=== PATIENT | male | born 1960 | race Caucasian/White ===

== ENCOUNTER 2016-05-28 13:51 | Inpatient (IN) ==
[2016-05-28] MEDS ORDERED: SODIUM CHLORIDE 0.9% 1,000 ML IV STA (14:26)
--- NOTE | 2016-05-28 14:30 | Emergency Department Note ---
Arrival - Arrival Chief Complaint: Non-Specific Stated Complaint: n/v,shaking,irregular pulse ED Nursing Triage Note: Pt c/o chills, dizziness, cough, nausea, and vomiting. States he started feeling bad last week. Mode of Arrival: Wheelchair Limitations: No Limitations Source: Patient, Family Time Seen by Provider: 05/28/16 14:10 - History of Present Illness HPI Narrative: Patient complains of chills, nausea, vomiting since this morning. He states that he has not felt well all weekend and has been in bed. He is had nasal congestion and a nonproductive cough. He has a small amount of epistaxis when he blows his nose. He does have a history of sick contacts with the flu. The patient has a history of alcohol abuse and I admitted him several months ago with delirium tremens. He says that he had not drank since that admission until 2 days ago when he drank a single beer. He is on Celexa but has been taking it very irregularly lately. His last dose was 2 nights ago. Allergies/Adverse Reactions: Allergies Allergy/AdvReac Type Severity Reaction Status Date / Time No Known Allergies Allergy Verified 01/07/16 18:09 Home Medications: Home Medications Medication Instructions Recorded Confirmed Type Citalopram [CeleXA] 20 mg PO DAILY 01/07/16 05/28/16 History Folic Acid Tab 1 mg PO DAILY 01/07/16 05/28/16 History Lactulose Liquid [Chronulac] 20 gm PO Q8H #90 udcup 01/14/16 05/28/16 Rx Pantoprazole Tab [Protonix Tab] 40 mg PO DAILY #60 tablet 01/14/16 05/28/16 Rx Review of System - Review of System 12 point system: reviewed and no additional remarkable complaints except as stated - Review of System Constitutional: Present: chills. Absent: diaphoresis, fever Head/Ears/Nose/Throat: Present: epistaxis, nasal drainage. Absent: sore throat Respiratory: Present: cough. Absent: respiratory distress, wheezing Cardiovascular: Absent: chest pain Gastrointestinal: Present: nausea, vomiting. Absent: abdominal pain Musculoskeletal: Absent: arm pain, arthralgia, back pain, leg pain, neck pain Neurological: Present: vertigo. Absent: headache, weakness Psychiatric: Absent: auditory hallucinations, visual hallucinations Medical,Surgical,& Family Hx - Medical History Cardio: History of: Hypertension Psychological: History of: Psychiatric/Substance Abuse Tx Endocrine: No history of: Diabetes Mellitus (NIDDM) Respiratory: No history of: COPD Gastrointestinal: History of: Liver Problems (Cirrohsis) - Surgical History Surgical History: noncontributory - Family History Family History: noncontributory - Social History Smoking Status: Smoker, status unknown Frequency of Alcohol Use: Rarely Exam Physical Examination: GENERAL: Alert. No acute distress. Shaking from chills. HEENT: Normocephalic and atraumatic. PERRLA. Sclerae slightly icteric. There is no nasal drainage. Small amount of dried blood at the left nostril. No pharyngeal erythema or exudate. NECK: Normal inspection. Supple. No lymphadenopathy or meningismus. LUNGS: No respiratory distress. Clear to auscultation bilaterally, no wheezes, rales or rhonchi. HEART: Regular rate and rhythm. ABDOMEN: Soft, nontender and nondistended with normoactive bowel sounds. BACK: Normal inspection. SKIN: Color normal. Warm and dry. EXTREMITIES: Nontender. Normal range of motion. No pedal edema. NEUROLOGICAL/PSYCHIATRIC: Alert and oriented 3 with normal mood and affect. Cranial nerves normal. No motor or sensory deficit. Vital Signs: Vital Signs Temperature 99.4 F 05/28/16 13:51 Pulse Rate 111 H 05/28/16 13:51 Respiratory Rate 20 05/28/16 13:51 Blood Pressure 138/104 05/28/16 13:51 O2 Sat by Pulse Oximetry 99 05/28/16 13:51 Course - Reevaluation(s) Reevaluation #1: Patient has remained stable in the ER. He has taken water with no vomiting here. He has several abnormalities on his workup. Basically he is acidotic with elevated anion gap and lactate. The most likely cause of this in this patient with a history of alcohol abuse would be ethanol, however, he continues to maintain that he has had only 2 beers since December and that was yesterday. His ethanol is minimally elevated at 25 but this is higher than I would expect if he just drank 2 beers yesterday. He denies consumption of isopropyl alcohol, methanol, ethylene glycol or formaldehyde. His potassium and magnesium are low. His bilirubin is elevated but is had about the same level as it was in December. I have discussed the patient with the hospitalist service (Krystle) who will see him and admit. Time: 15:55 Results - Labs CBC & BMP: 05/28/16 14:30 05/28/16 14:30 Lab Results: I have reviewed the patients labs Labs: Microbiology 05/28/16 14:26 Nasal Aspirate Influenza Types A,B Antigen (YVES) - Final Negative for Influenza A Ag Negative for Influenza B Ag Laboratory Tests 05/28/16 05/28/16 05/28/16 14:24 14:30 14:30 INR Lactic Acid Magnesium 1.4 L Total Bilirubin 5.40 H AST 103 H ALT 37 Alkaline Phosphatase 212 H Ammonia Urine Protein 30 Urine Ketones 20 Urine Urobilinogen 4.0 H Urine RBC 1 Urine WBC 2 Serum Alcohol 05/28/16 05/28/16 14:30 14:30 INR 1.4 Lactic Acid 10.8 H Magnesium Total Bilirubin AST ALT Alkaline Phosphatase Ammonia < 10 L Urine Protein Urine Ketones Urine Urobilinogen Urine RBC Urine WBC Serum Alcohol 27 - Impressions Chest x-ray shows some old granulomatous disease with scarring and minimal atelectasis in the bases. Disposition Clinical Impression: Alcoholic hepatitis, Hypokalemia, Hypomagnesemia, Hyperbilirubinemia, Metabolic acidosis, Vomiting, Noncompliance with medication regimen Case discussed with: patient, patient's family Disposition: Still a Patient Condition: Guarded Time of Disposition: 15:52
[2016-05-28 14:54] LABS: Basophils % 0.8 % (0.0-0.8); Hematocrit 37.8 VOL% (42.0-52.0); Hemoglobin 13.4 GM/DL (14.0-18.0); Immature Granulocytes % 0.4 %; Immature Granulocytes Absolute 0.02 #; Lymphocytes # 0.6 10*3/uL (1.4-4.0); Lymphocytes % 11.4 % (21.2-54.2); Mean Corpuscular HGB Conc 35.4 GM/DL (32-36); Mean Corpuscular Hemoglobin 35 PG (27-34); Mean Corpuscular Volume 97.7 FL (87-102); Mean Platelet Volume 10.4 FL (9.6-12.0); Monocytes # 0.5 10*3/uL (0.11-0.8); Monocytes % 10.6 % (1.7-12.7); Neutrophils # 3.8 10*3/uL (1.4-7.4); Neutrophils % 76.8 % (38.7-73.9); Platelet Count 85 10*3/uL (130-400); Red Blood Count 3.87 10*6/uL (3.8-5.5); Red Cell Distribution Width 14.1 % (9.3-17.3); White Blood Count 4.9 10*3/uL (4.5-13.71)
--- NOTE | 2016-05-28 14:54 | XRay Report ---
Portable chest Date:[05/28/2016] Clinical history: Fever, cough Comparison: 01/07/2016 Technique: Portable AP sitting chest Findings: The heart is normal in size. Calcified granulomata/nodes with chronic scarring. Minimal atelectasis/infiltration at the lung bases. Stable mediastinum with degenerative changes. Impression: Old healed granulomatous disease chronic scarring. Minimal atelectasis/infiltration at the lung bases. PROCEDURE INTERPRETED AT [facility] DEPARTMENT OF RADIOLOGY Final Report Signed by: Dr. Dione Matos
[2016-05-28 15:13] LABS: INR 1.4; Partial Thromboplastin Time 30.4 SECS (0-40); Platelet Estimate Decreased
[2016-05-28 15:15] LABS: Albumin 3.2 G/DL (3.4-5.0); Ammonia < 10 UMOL/L (11-32); Bilirubin,Total 5.4 MG/DL (0.2-1.0); Calcium 8.8 MG/DL (8.5-10.1); Lactic Acid 10.8 MMOL/L (0.4-2.0); Osmolality,Calculated 279.1 MOS/KG (273-304); Total Protein 7.8 G/DL (6.4-8.3)
[2016-05-28] MEDS ORDERED: THIAMINE INJ 100 MG, FOLIC ACID INJ 1 MG, MAGNESIUM SULF INJ 2 GM, MULTIVITAMIN INJ 10 ... IV ONE (15:23)
[2016-05-28 15:25] LABS: Apearance,Urine Slightly Hazy (Clear); Bilirubin,Urine Negative (Negative); Blood, Urine Negative (Negative); Glucose,Urine (UA) Negative (Negative); Granular Casts,Urine 13 /LPF (0-1); Hyaline Casts,Urine 9 /LPF (0-3); Ketones,Urine 20 mg/dL (Negative); Mucus,Urine Many /LPF (Occasional); Nitrite,Urine Negative (Negative); Protein,Urine 30 MG/DL; RBC,Urine 1 /HPF (0-4); Squamous Epithelial Cell,Urine Occasional /HPF (0-10); Urine Color Amber (Yellow); Urine Specific Gravity 1.018 (1.001-1.035); WBC,Urine 2 /HPF (0-6)
[2016-05-28 15:29] LABS: Barbiturates Screen,Urine Negative (Negative); Benzodiazepines Screen,Urine Negative (Negative); Cannabinoid Screen,Urine Negative (Negative); Opiate Screen,Urine Negative (Negative); Phencyclidine Screen,Urine Negative (Negative)
[2016-05-28] MEDS: SODIUM CHLORIDE 0.9% 1,000 ML IV SCH (16:00)
[2016-05-28] MEDS ORDERED: ONDANSETRON 4 MG/2 ML VIAL IV PRN (16:24)
[2016-05-28] MEDS ORDERED: DOCUSATE SODIUM 100 MG CAPSULE PO PRN (16:24)
--- NOTE | 2016-05-28 17:02 | Hospitalist History & Physical ---
Assessment and Plan (1) Alcohol withdrawal Status: Resolved Assessment and plan: He appears to be in the early stages of alcohol withdrawal. I will treat him with lorazepam. Current Visit: No (2) Alcoholic encephalopathy Status: Acute Assessment and plan: He is mildly encephalopathic. Current Visit: No (3) Hypokalemia Status: Acute Assessment and plan: Potassium replacement. Current Visit: Yes History of Present Illness Chief complaint: Weakness History of present illness: Mr. Yoder is a 55 year old male witha a history of alcohol abuse. He states that he stopped drinking several days [employer]. Since that time, he has felt generally weak. He states that he feels like he has the flu. He has not been experiencing fever, shaking chills, n&v, diarrhea, or cough. He admits to feelimg generally "shakey". He is being admitted to the hospital with presumed alcohol withdrawal syndrome. Home Medications Medication Instructions Recorded Confirmed Type Citalopram [CeleXA] 20 mg PO DAILY 01/07/16 05/28/16 History Folic Acid Tab 1 mg PO DAILY 01/07/16 05/28/16 History Lactulose Liquid [Chronulac] 20 gm PO Q8H #90 udcup 01/14/16 05/28/16 Rx Pantoprazole Tab [Protonix Tab] 40 mg PO DAILY #60 tablet 01/14/16 05/28/16 Rx Allergies Allergy/AdvReac Type Severity Reaction Status Date / Time No Known Allergies Allergy Verified 01/07/16 18:09 Medical,Surgical,& Family Hx - Medical History Cardio: History of: Hypertension Psychological: History of: Psychiatric/Substance Abuse Tx Endocrine: No history of: Diabetes Mellitus (NIDDM) Respiratory: No history of: COPD Gastrointestinal: History of: Liver Problems (Cirrohsis) - Social History Smoking Status: Smoker, status unknown Frequency of Alcohol Use: Rarely 12 point system: reviewed and no additional remarkable complaints except as stated Exam - Constitutional Vitals: Period Temp Pulse Resp BP Sys/Vargas Pulse Ox Last 24 Hr 98.4 F-99.4 F 102-111 20-20 122-138/71-104 99 General appearance: no acute distress, other (generally treulous) - Head Head exam: Present: normal inspection - Eye Pupils: Present: DORCAS - Neck Neck exam: Present: normal inspection - Respiratory Respiratory exam: Present: clear to auscultation bilaterally - Cardiovascular Cardiovascular exam: Present: regular rate and rhythm - GI/Abdominal GI/Abdominal exam: Present: normal bowel sounds, soft, other (nontender) - Extremities Exam Extremities exam: Present: normal inspection - Back Exam Back exam: Present: normal inspection - Neurological Exam Neurological exam: Present: alert, oriented X3, CN II-XII intact, other (no gross motor or sensory deficits) - Psychiatric Psychiatric exam: Present: normal affect, normal mood - Skin Skin exam: Present: normal color Results - Labs CBC & BMP: 05/28/16 14:30 05/28/16 14:30 Quality Measures - VTE Contraindication to Pharmacological VTE Prophylaxis: Thrombocytopenia
[2016-05-28] MEDS ORDERED: LORazepam 1 MG TABLET ONE (19:57)
[2016-05-28] MEDS ORDERED: LORazepam 2 MG/1 ML VIAL IV PRN (22:38)
[2016-05-28] MEDS: LACTULOSE 20 GM/30 ML UDCUP PO SCH (22:38)
[2016-05-28] MEDS: LORazepam 1 MG TABLET PO SCH (22:57)
[2016-05-29] MEDS: SODIUM CHLORIDE 0.9% 1,000 ML IV SCH ×4 (00:30→20:47)
[2016-05-29 05:15] LABS: Basophils % 0.5 % (0.0-0.8); Eosinophils % 0.7 % (0.00-10.9); Hematocrit 34.7 VOL% (42.0-52.0); Immature Granulocytes % 0.3 %; Immature Granulocytes Absolute 0.02 #; Lymphocytes # 1.5 10*3/uL (1.4-4.0); Mean Corpuscular HGB Conc 34.6 GM/DL (32-36); Mean Corpuscular Hemoglobin 33 PG (27-34); Mean Corpuscular Volume 96.7 FL (87-102); Mean Platelet Volume 10.8 FL (9.6-12.0); Monocytes # 0.6 10*3/uL (0.11-0.8); Monocytes % 10.8 % (1.7-12.7); Neutrophils # 3.6 10*3/uL (1.4-7.4); Neutrophils % 61.7 % (38.7-73.9); Platelet Count 75 10*3/uL (130-400); Red Blood Count 3.59 10*6/uL (3.8-5.5); Red Cell Distribution Width 14.3 % (9.3-17.3); White Blood Count 5.9 10*3/uL (4.5-13.71)
[2016-05-29 05:35] LABS: Hypochromasia 1+; Platelet Estimate Decreased
[2016-05-29 05:53] LABS: Albumin 2.7 G/DL (3.4-5.0); Calcium 7.8 MG/DL (8.5-10.1); Potassium 3.1 MMOL/L (3.5-5.1); Total Protein 6.6 G/DL (6.4-8.3)
[2016-05-29] MEDS: LACTULOSE 20 GM/30 ML UDCUP PO SCH ×4 (07:11→23:11)
[2016-05-29] MEDS ORDERED: PANTOPRAZOLE 40 MG TABLET PO SCH (09:00)
[2016-05-29] MEDS: CITALOPRAM 20 MG TABLET PO SCH (09:10)
[2016-05-29] MEDS: LORazepam 1 MG TABLET PO SCH (09:10)
[2016-05-29] MEDS: FOLIC ACID 1 MG TABLET PO SCH (09:10)
[2016-05-29] MEDS: PANTOPRAZOLE 40 MG TABLET PO SCH (09:10)
[2016-05-29] MEDS: POTASSIUM CHLORIDE 20 MEQ TABLET PO SCH (09:10)
--- NOTE | 2016-05-29 13:36 | Hospitalist Progress Note ---
Assessment and Plan - Time spent with patient Time spent with patient: Greater than 30 minutes (1) Alcohol abuse Status: Acute Current Visit: No (2) Alcohol withdrawal Status: Resolved Current Visit: No (3) Hypokalemia Status: Acute Current Visit: Yes (4) Hypomagnesemia Status: Acute Current Visit: Yes (5) Hyperbilirubinemia Status: Chronic Current Visit: Yes (6) Alcoholic encephalopathy Status: Acute Current Visit: No (7) Delirium tremens Status: Resolved Current Visit: No (8) Alcoholic hepatitis Status: Acute Current Visit: Yes (9) Metabolic acidosis Status: Acute Assessment and plan: We will switch to a longer acting BZD to manage his withdrawal Start on Librium 25mg QID, monitor LFT. DC Ativan for now Last US is less than 6months ago, no need for repeat. Check AFP Supplement Mg and recheck levels in a.m Current Visit: Yes Hospitalist: Subjective Interval history: Being managed for alcohol withdrawal Still having tremors and hallucination Family seems to think hallucination is related to meds, hallucination said to have started after meds were started. Hemodynamically stable. Elevated LFT' s are chronic from his alcoholic liver disease, i reviewed his old records. He also had an US of the liver on the last admit. Exam - Constitutional Vitals: Period Temp Pulse Resp BP Sys/Vargas Pulse Ox Last 24 Hr 97.4 F-98.6 F 86-104 18-20 116-164/60-84 95-100 Exam: General appearance: no acute distress, other (generally treulous) - Head Head exam: Present: normal inspection - Eye Pupils: Present: DORCAS - Neck Neck exam: Present: normal inspection - Respiratory Respiratory exam: Present: clear to auscultation bilaterally - Cardiovascular Cardiovascular exam: Present: regular rate and rhythm - GI/Abdominal GI/Abdominal exam: Present: normal bowel sounds, soft, other (nontender) - Extremities Exam Extremities exam: Present: normal inspection - Back Exam Back exam: Present: normal inspection - Neurological Exam Neurological exam: Present: alert, confused and appears to be hallucinating visually - Psychiatric Psychiatric exam: Present: normal affect, normal mood - Skin Skin exam: Present: normal color Results - Labs CBC & BMP: 05/29/16 04:39 05/29/16 04:39 Lab Results: I have reviewed the past 24 hour labs Quality Measures - VTE Contraindication to Pharmacological VTE Prophylaxis: Thrombocytopenia
[2016-05-29] MEDS ORDERED: MAGNESIUM SULF RIDER 4 GM in PREMIX 1 EACH IV ONE (14:00)
[2016-05-29] MEDS ORDERED: chlordiazePOXIDE 25 MG CAPSULE PO ONE (14:08)
[2016-05-29] MEDS: LORazepam 2 MG/1 ML VIAL IV PRN (14:14)
[2016-05-29] MEDS ORDERED: chlordiazePOXIDE 25 MG CAPSULE PO SCH (17:00)
[2016-05-29] MEDS: ZALEPLON 5 MG CAPSULE PO PRN (20:46)
[2016-05-29] MEDS: chlordiazePOXIDE 25 MG CAPSULE PO PRN (20:46)
[2016-05-29] MEDS: ZIPRASIDONE 20 MG/1 ML VIAL IM PRN (23:03)
[2016-05-30] MEDS: SODIUM CHLORIDE 0.9% 1,000 ML IV SCH ×3 (00:10→17:27)
[2016-05-30] MEDS: ZIPRASIDONE 20 MG/1 ML VIAL IM PRN ×2 (03:04→09:28)
[2016-05-30] MEDS: chlordiazePOXIDE 25 MG CAPSULE PO PRN (05:47)
[2016-05-30 06:33] LABS: Albumin 2.7 G/DL (3.4-5.0); Bilirubin,Total 4.1 MG/DL (0.2-1.0); Calcium 7.8 MG/DL (8.5-10.1); Osmolality,Calculated 284.7 MOS/KG (273-304); Potassium 3.3 MMOL/L (3.5-5.1); Total Protein 6.4 G/DL (6.4-8.3)
[2016-05-30] MEDS: LACTULOSE 20 GM/30 ML UDCUP PO SCH ×5 (07:24→22:42)
[2016-05-30] MEDS: FOLIC ACID 1 MG TABLET PO SCH (08:15)
[2016-05-30] MEDS: CITALOPRAM 20 MG TABLET PO SCH (08:16)
[2016-05-30] MEDS: PANTOPRAZOLE 40 MG TABLET PO SCH (08:16)
[2016-05-30] MEDS: POTASSIUM CHLORIDE 20 MEQ TABLET PO SCH (08:16)
[2016-05-30] MEDS: LORazepam 2 MG/1 ML VIAL IV PRN (10:38)
--- NOTE | 2016-05-30 11:19 | Hospitalist Progress Note ---
Assessment and Plan (1) Alcohol abuse Status: Acute Current Visit: No (2) Alcohol withdrawal Status: Resolved Current Visit: No (3) Hypokalemia Status: Acute Current Visit: Yes (4) Hypomagnesemia Status: Acute Current Visit: Yes Hospitalist: Subjective Interval history: When I saw patient he is hallucinating. He's trying to get out of bed. He does not have significant active tremors higher were. Assessment and plan 05/30/2016: Acute alcohol withdrawal Patient needs to be on scheduled dose of benzodiazepine and we'll start him on 50 mg of Librium every 6 hours. We will also give him a dose of 1 mg Ativan now. Thiamine is also being added to fully case it. He may require ICU observation of his symptoms get worse Exam - Constitutional Vitals: Period Temp Pulse Resp BP Sys/Vargas Pulse Ox Last 24 Hr 97 F-99.1 F 86-108 16-20 117-135/63-72 96-98 Exam: Gen.: In no acute distress, confused Head and neck: Pupils are reactive neck is supple Cardiovascular: S1-S2 with regular rate and rhythm Respiratory: Lungs are clear to auscultation and percussion Abdomen: Soft, bowel sounds are positive Extremities: No edema Neuro: No focal deficits but hallucinating Results - Labs CBC & BMP: 05/29/16 04:39 05/30/16 03:51 Lab Results: I have reviewed the past 24 hour labs Quality Measures - VTE Contraindication to Pharmacological VTE Prophylaxis: Thrombocytopenia
[2016-05-30] MEDS: chlordiazePOXIDE 25 MG CAPSULE PO SCH ×6 (13:57→23:30)
[2016-05-31] MEDS: SODIUM CHLORIDE 0.9% 1,000 ML IV SCH ×3 (00:22→20:57)
[2016-05-31] MEDS: LACTULOSE 20 GM/30 ML UDCUP PO SCH ×4 (03:37→20:49)
[2016-05-31] MEDS: FOLIC ACID 1 MG TABLET PO SCH (10:00)
[2016-05-31] MEDS: CITALOPRAM 20 MG TABLET PO SCH (10:00)
[2016-05-31] MEDS: POTASSIUM CHLORIDE 20 MEQ TABLET PO SCH ×2 (10:00→20:48)
[2016-05-31] MEDS: PANTOPRAZOLE 40 MG TABLET PO SCH (10:00)
[2016-05-31] MEDS: THIAMINE 200 MG/2 ML VIAL IV SCH (13:43)
[2016-05-31] MEDS: chlordiazePOXIDE 25 MG CAPSULE PO SCH ×4 (13:43→20:48)
--- NOTE | 2016-05-31 13:57 | Hospitalist Progress Note ---
Assessment and Plan (1) Alcohol abuse Status: Acute Current Visit: No (2) Hypokalemia Status: Acute Current Visit: Yes (3) Hypomagnesemia Status: Acute Current Visit: Yes Hospitalist: Subjective Interval history: Much more awake and alert. Still slightly lethargic but no longer confused. He declined inpatient rehabilitation. His ammonia level is up today but overall his status is better. He still has some tongue tremors and some hand tremors. Assessment and plan 05/31/2016: Acute alcohol withdrawal Probable mild hepatic encephalopathy We will decrease the dose of benzodiazepine in half. We will also increase his lactulose dosing. Continue current management otherwise with IV fluids thiamine and fully case it. Exam - Constitutional Vitals: Period Temp Pulse Resp BP Sys/Vargas Pulse Ox Last 24 Hr 97.2 F-99.3 F 81-99 18-23 110-137/57-72 92-98 Exam: Gen.: In no acute distress, slightly somnolent Head and neck: Pupils are reactive neck is supple Cardiovascular: S1-S2 with regular rate and rhythm Respiratory: Lungs are clear to auscultation and percussion Abdomen: Soft, bowel sounds are positive Extremities: No edema Neuro: No focal deficits Results - Labs CBC & BMP: 05/29/16 04:39 05/30/16 03:51 Lab Results: I have reviewed the past 24 hour labs Quality Measures - VTE Contraindication to Pharmacological VTE Prophylaxis: Thrombocytopenia
[2016-06-01] MEDS: LACTULOSE 20 GM/30 ML UDCUP PO SCH ×4 (01:52→21:36)
[2016-06-01] MEDS: LORazepam 2 MG/1 ML VIAL IV PRN (01:53)
[2016-06-01] MEDS: SODIUM CHLORIDE 0.9% 1,000 ML IV SCH ×3 (04:39→21:42)
[2016-06-01 05:31] LABS: Albumin 2.6 G/DL (3.4-5.0); Bilirubin,Total 3.3 MG/DL (0.2-1.0); Calcium 8.2 MG/DL (8.5-10.1); Osmolality,Calculated 283.8 MOS/KG (273-304); Potassium 3.6 MMOL/L (3.5-5.1); Total Protein 6.1 G/DL (6.4-8.3)
[2016-06-01] MEDS: chlordiazePOXIDE 25 MG CAPSULE PO SCH ×2 (09:17→12:20)
[2016-06-01] MEDS: FOLIC ACID 1 MG TABLET PO SCH (09:18)
[2016-06-01] MEDS: PANTOPRAZOLE 40 MG TABLET PO SCH (09:18)
[2016-06-01] MEDS: POTASSIUM CHLORIDE 20 MEQ TABLET PO SCH ×2 (09:18→21:41)
[2016-06-01] MEDS: CITALOPRAM 20 MG TABLET PO SCH (09:18)
[2016-06-01] MEDS: THIAMINE 200 MG/2 ML VIAL IV SCH (12:17)
--- NOTE | 2016-06-01 13:45 | Hospitalist Progress Note ---
Assessment and Plan (1) Alcohol abuse Status: Acute Current Visit: No (2) Hypokalemia Status: Acute Current Visit: Yes (3) Hypomagnesemia Status: Acute Current Visit: Yes Hospitalist: Subjective Interval history: Did not sleep well but otherwise has no further hallucinations. Still has minimal tremors but overall better. Eating well. His ammonia level is slightly down trended. Assessment and plan 06/01/2016: Alcohol withdrawal with hallucinations Mildly elevated ammonia level Clinically improving. We will taper Librium further. We'll continue with lactulose at the current dose. Hopefully discharge tomorrow or Friday Exam - Constitutional Vitals: Period Temp Pulse Resp BP Sys/Vargas Pulse Ox Last 24 Hr 97.8 F-100.1 F 60-97 16-20 121-136/66-76 93-99 Exam: Gen.: In no acute distress, slightly somnolent Head and neck: Pupils are reactive neck is supple Cardiovascular: S1-S2 with regular rate and rhythm Respiratory: Lungs are clear to auscultation and percussion Abdomen: Soft, bowel sounds are positive Extremities: No edema Neuro: No focal deficits Results - Labs CBC & BMP: 05/29/16 04:39 06/01/16 04:37 Lab Results: I have reviewed the past 24 hour labs Quality Measures - VTE Contraindication to Pharmacological VTE Prophylaxis: Thrombocytopenia
[2016-06-01] MEDS ORDERED: chlordiazePOXIDE 25 MG CAPSULE PO SCH (15:00)
[2016-06-01 15:08] LABS: Hepatitis A Ab IgM Quant 0.21 Index; Hepatitis A Ab IgM Result Negative (Negative); Hepatitis B Core IgM Quant < 0.05 Index; Hepatitis B Core IgM Result Negative (Negative); Hepatitis B Surface Ag Quant 0.19 Index; Hepatitis B Surface Ag Result Negative (Negative); Hepatitis C Virus Ab Quant 0.07 Index; Hepatitis C Virus Ab Result Negative (Negative)
[2016-06-01] MEDS: chlordiazePOXIDE 10 MG CAPSULE PO SCH ×2 (15:41→22:10)
[2016-06-01] MEDS ORDERED: ChlordiazePOXIDE/CLIDINIUM 5-2.5 MG CAPSULE ONE (20:56)
[2016-06-02] MEDS: LACTULOSE 20 GM/30 ML UDCUP PO SCH ×4 (02:37→21:29)
[2016-06-02] MEDS: SODIUM CHLORIDE 0.9% 1,000 ML IV SCH (06:50)
[2016-06-02] MEDS: POTASSIUM CHLORIDE 20 MEQ TABLET PO SCH (10:13)
[2016-06-02] MEDS: CITALOPRAM 20 MG TABLET PO SCH (10:13)
[2016-06-02] MEDS: PANTOPRAZOLE 40 MG TABLET PO SCH (10:13)
[2016-06-02] MEDS: FOLIC ACID 1 MG TABLET PO SCH (10:13)
[2016-06-02] MEDS ORDERED: ChlordiazePOXIDE/CLIDINIUM 5-2.5 MG CAPSULE ONE (10:18)
[2016-06-02] MEDS: chlordiazePOXIDE 10 MG CAPSULE PO SCH (10:41)
[2016-06-02] MEDS ORDERED: THIAMINE 200 MG/2 ML VIAL IV ONE (11:00)
--- NOTE | 2016-06-02 12:36 | Hospitalist Progress Note ---
Assessment and Plan (1) Alcohol abuse Status: Acute Current Visit: No (2) Hypokalemia Status: Acute Current Visit: Yes (3) Hypomagnesemia Status: Acute Current Visit: Yes Hospitalist: Subjective Interval history: Continues to improve as far as hallucination and withdrawal is concerned. Tolerated tapering his benzodiazepines further. Also having good bit of diarrhea from lactulose. Assessment and plan 06/02/2016: Acute alcohol withdrawal with hallucinations Mild hepatic encephalopathy Patient agrees to outpatient camelia appointment. We will discontinue IV fluids today taper his benzodiazepine to Librium 10 mg once a day today and also decrease lactulose. Hopefully discharge home tomorrow if he does not have worsening withdrawal after we tapered his benzodiazepines off Exam - Constitutional Vitals: Period Temp Pulse Resp BP Sys/Vargas Pulse Ox Last 24 Hr 97.8 F-98.9 F 74-89 18-20 103-129/56-77 94-99 Exam: Gen.: In no acute distress, Head and neck: Pupils are reactive neck is supple Cardiovascular: S1-S2 with regular rate and rhythm Respiratory: Lungs are clear to auscultation and percussion Abdomen: Soft, bowel sounds are positive Extremities: No edema Neuro: No focal deficits Results - Labs CBC & BMP: 05/29/16 04:39 06/01/16 04:37 Lab Results: I have reviewed the past 24 hour labs Quality Measures - VTE Contraindication to Pharmacological VTE Prophylaxis: Thrombocytopenia
[2016-06-02] MEDS: THIAMINE 200 MG/2 ML VIAL IV SCH (15:26)
[2016-06-02] MEDS: ZALEPLON 5 MG CAPSULE PO PRN (21:30)
[2016-06-03] MEDS: LACTULOSE 20 GM/30 ML UDCUP PO SCH ×3 (02:12→14:51)
[2016-06-03] MEDS: CITALOPRAM 20 MG TABLET PO SCH (08:59)
[2016-06-03] MEDS: FOLIC ACID 1 MG TABLET PO SCH (09:00)
[2016-06-03] MEDS ORDERED: chlordiazePOXIDE 10 MG CAPSULE PO SCH (09:00)
[2016-06-03] MEDS: PANTOPRAZOLE 40 MG TABLET PO SCH (09:00)
[2016-06-03] MEDS ORDERED: POTASSIUM CHLORIDE 20 MEQ TABLET PO SCH (09:00)
[2016-06-03 16:28] VITALS: BP 105/64
--- NOTE | 2016-06-03 16:48 | Discharge Summary ---
Discharge Plan - Discharge Data Disposition: Disch To Home/Self Care Condition at Discharge: Stable Discharge Diet: advance to your usual diet Activity: other (Give work excuse untile 06/10/2016, patient may returnt to work on that date) Weight Bearing at Discharge: full weight bearing Driving: no restrictions Contact your physician if you experience:: fever over 101 - Discharge Medications New Pantoprazole Tab [Protonix Tab] 40 mg PO DAILY tablet chlordiazePOXIDE [Librium] 10 mg PO TID #15 capsule Continue Citalopram [CeleXA] 20 mg PO DAILY Pantoprazole Tab [Protonix Tab] 40 mg PO DAILY #60 tablet Folic Acid Tab 1 mg PO DAILY #30 tablet Changed Lactulose Liquid [Chronulac] 20 gm PO DAILY #90 udcup - Follow Up or Referral Follow Up: Unruly Fuentes MD [Physician] - 3 Days - Forms/Instructions Exam - Constitutional Vitals: Period Temp Pulse Resp BP Sys/Vargas Pulse Ox Last 24 Hr 97.0 F-98.8 F 65-92 18-20 102-118/58-66 95-99 Exam: General appearance: chronically ill appearing, thin male, awake - Head Head exam: Present: normal inspection - Eye Eye exam: Present: EOMI. Absent: periorbital swelling - ENT ENT exam: Present: normal exam - Neck Neck exam: Present: normal inspection - Respiratory Respiratory exam: Present: clear to auscultation bilaterally. Absent: rales, rhonchi - Cardiovascular Cardiovascular exam: Present: regular rate and rhythm. Absent: systolic murmur - GI/Abdominal GI/Abdominal exam: Present: normal bowel sounds, tenderness, soft. Absent: guarding - Extremities Exam Extremities exam: Present: normal inspection, full ROM - Back Exam Back exam: Present: normal inspection - Neurological Exam Neurological exam: Present: alert, oriented X3, psychomotor retardation, mildly tremulous - Psychiatric Psychiatric exam: Present: normal affect - Skin Skin exam: Present: normal color Discharge Results Labs on day of discharge: Labs from last 24 hours 06/03/16 04:55 Ammonia 74 H DS: Provider Date of admission: 05/30/16 12:25 Primary care physician: Nonstaff Physician Attending physician on admission: Cezar Ornelas Consults: 06/02/16 12:38 Consult to Case Mgmt/Social Srvs [CONS] Routine Reason for Case Mgmt/Social Srvs: Other Consult Comment: outpatient rehabilitation for alcohol Discharging clinician: Isaac Quiñones MD
== END 2016-06-03 18:40 | disposition home or self-care (01) | DRG 897 ==
LOC: N.ED 13:51 → N.EDINP 13:51 → N.TELEN 21:13 → N.4E 05-29 18:21
PROVIDERS: ATTEND Internal Medicine

== ENCOUNTER 2018-06-01 22:31 | Inpatient (IN) ==
[2018-06-02 00:59] LABS: Basophils # 0.1 10*3/uL (0.0-0.2); Basophils % 1.4 % (0.0-0.8); Eosinophils # 0.1 10*3/uL (0.0-0.87); Eosinophils % 1.4 % (0.00-10.9); Hematocrit 34.7 VOL% (42.0-52.0); Hemoglobin 11.4 GM/DL (14.0-18.0); Immature Granulocytes % 0.6 %; Immature Granulocytes Absolute 0.02 #; Lymphocytes # 0.9 10*3/uL (1.4-4.0); Lymphocytes % 26.1 % (21.2-54.2); Mean Corpuscular HGB Conc 32.9 GM/DL (32-36); Mean Corpuscular Hemoglobin 35 PG (27-34); Mean Corpuscular Volume 105.5 FL (87-102); Monocytes # 0.4 10*3/uL (0.11-0.8); Monocytes % 10.5 % (1.7-12.7); Neutrophils # 2.1 10*3/uL (1.4-7.4); Red Blood Count 3.29 MC/CUMM (3.8-5.5); Red Cell Distribution Width 15.5 % (9.3-17.3); White Blood Count 3.5 T/CUMM (4-12)
[2018-06-02 01:06] LABS: INR 1.5; PT Patient Result 16.2 SECS; Partial Thromboplastin Time 30.9 SECS (0-40)
[2018-06-02 01:07] LABS: Platelet Count 71 T/CUMM (130-400)
[2018-06-02 01:11] LABS: Albumin 2.6 G/DL (3.4-5.0); Bilirubin,Total 5.6 MG/DL (0.2-1.0); Calcium 7.7 MG/DL (8.5-10.1); Potassium 3.7 MMOL/L (3.5-5.1); Total Protein 6.7 G/DL (6.4-8.3)
[2018-06-02 01:57] LABS: Barbiturates Screen,Urine Negative (Negative); Benzodiazepines Screen,Urine Negative (Negative); Cannabinoid Screen,Urine Negative (Negative); Opiate Screen,Urine Negative (Negative); Phencyclidine Screen,Urine Negative (Negative)
[2018-06-02 04:41] LABS: Hypochromasia 1+; Ovalocytes Slight; Platelet Estimate Decreased
[2018-06-02] MEDS ORDERED: ONDANSETRON 4 MG/2 ML VIAL IV PRN (05:13)
[2018-06-02] MEDS ORDERED: THIAMINE INJ 100 MG, FOLIC ACID INJ 1 MG, MULTIVITAMIN INJ 10 ML in SODIUM CHLORIDE 0.9... IV ONE (05:25)
[2018-06-02] MEDS ORDERED: LORazepam 2 MG/1 ML VIAL IV PRN (05:27)
[2018-06-02] MEDS ORDERED: ALUMINUM/MAGNES/SIMETH MAX STR 30 ML UDCUP PO PRN (05:28)
[2018-06-02] MEDS: chlordiazePOXIDE 25 MG CAPSULE PO SCH ×4 (06:31→22:45)
[2018-06-02] MEDS: LACTULOSE 20 GM/30 ML UDCUP PO SCH ×4 (06:31→22:45)
[2018-06-02 06:36] LABS: Folate 9.4 NG/ML (5.4-24.0)
[2018-06-02] MEDS: ACETAMINOPHEN 500 MG TABLET PO PRN ×2 (07:38→21:41)
[2018-06-02 12:10] LABS: Basophils % 0.3 % (0.0-0.8); Hematocrit 31.1 VOL% (42.0-52.0); Hemoglobin 10.6 GM/DL (14.0-18.0); Immature Granulocytes % 0.9 %; Lymphocytes # 1.4 10*3/uL (1.4-4.0); Lymphocytes % 11.8 % (21.2-54.2); Mean Corpuscular HGB Conc 34.1 GM/DL (32-36); Mean Corpuscular Hemoglobin 35 PG (27-34); Mean Corpuscular Volume 101.6 FL (87-102); Mean Platelet Volume 10.8 FL (9.6-12.0); Monocytes # 1.2 10*3/uL (0.11-0.8); Neutrophils # 8.9 10*3/uL (1.4-7.4); Red Blood Count 3.06 MC/CUMM (3.8-5.5); Red Cell Distribution Width 15.3 % (9.3-17.3)
[2018-06-02 12:30] LABS: Albumin 2.4 G/DL (3.4-5.0); Bilirubin,Total 7.5 MG/DL (0.2-1.0); Calcium 7.8 MG/DL (8.5-10.1); Potassium 3.3 MMOL/L (3.5-5.1); Total Protein 6.5 G/DL (6.4-8.3); White Blood Count 11.5 T/CUMM (4-12)
[2018-06-02 12:31] LABS: Platelet Count 67 T/CUMM (130-400)
[2018-06-02] MEDS: PHYTONADIONE 5 MG/5 ML ORAL.SYR PO SCH (13:11)
[2018-06-02 13:20] LABS: Platelet Estimate Decreased
[2018-06-02 13:21] LABS: Hypochromasia 1+; Ovalocytes Few
[2018-06-02] MEDS ORDERED: POTASSIUM CHLORIDE 20 MEQ TABLET PO ONE (15:00)
[2018-06-02] MEDS: SODIUM CHLORIDE 0.9% 1,000 ML IV SCH ×2 (15:07→23:15)
[2018-06-02 15:08] LABS: Apearance,Urine CLEAR (Clear); Bacteria,Urine Occasional /HPF (Few); Bilirubin,Urine Negative (Negative); Blood, Urine Negative (Negative); Glucose,Urine (UA) Negative (Negative); Ketones,Urine Negative (Negative); Nitrite,Urine Negative (Negative); Protein,Urine Negative; RBC,Urine <1 /HPF (0-4); Urine Color Amber (Yellow); Urine Specific Gravity 1.011 (1.001-1.035); WBC,Urine <1 /HPF (0-6)
[2018-06-02] MEDS: risperiDONE 1 MG TABLET PO SCH (21:41)
[2018-06-03 04:50] LABS: Basophils # 0.1 10*3/uL (0.0-0.2); Basophils % 0.9 % (0.0-0.8); Eosinophils # 0.1 10*3/uL (0.0-0.87); Eosinophils % 1.3 % (0.00-10.9); Hematocrit 29.3 VOL% (42.0-52.0); Immature Granulocytes % 0.5 %; Immature Granulocytes Absolute 0.04 #; Lymphocytes # 1.8 10*3/uL (1.4-4.0); Lymphocytes % 22.7 % (21.2-54.2); Mean Corpuscular HGB Conc 34.1 GM/DL (32-36); Mean Corpuscular Hemoglobin 35 PG (27-34); Mean Corpuscular Volume 102.4 FL (87-102); Mean Platelet Volume 11.1 FL (9.6-12.0); Monocytes # 0.8 10*3/uL (0.11-0.8); Monocytes % 10.3 % (1.7-12.7); Neutrophils # 5.1 10*3/uL (1.4-7.4); Neutrophils % 64.3 % (38.7-73.9); Red Blood Count 2.86 MC/CUMM (3.8-5.5); Red Cell Distribution Width 15.4 % (9.3-17.3)
[2018-06-03 04:59] LABS: Platelet Count 61 T/CUMM (130-400)
[2018-06-03 05:09] LABS: Albumin 2.4 G/DL (3.4-5.0); Bilirubin,Total 6.2 MG/DL (0.2-1.0); Calcium 7.3 MG/DL (8.5-10.1); Osmolality,Calculated 279.3 MOS/KG (273-304); Potassium 3.1 MMOL/L (3.5-5.1); Total Protein 5.9 G/DL (6.4-8.3)
[2018-06-03 05:26] LABS: INR 1.7; PT Patient Result 18.3 SECS
[2018-06-03 05:37] LABS: Hypochromasia 1+; Platelet Estimate Decreased
[2018-06-03] MEDS: chlordiazePOXIDE 25 MG CAPSULE PO SCH ×3 (06:18→21:25)
[2018-06-03] MEDS: LACTULOSE 20 GM/30 ML UDCUP PO SCH ×2 (06:18→21:25)
[2018-06-03] MEDS: CITALOPRAM 20 MG TABLET PO SCH (09:01)
[2018-06-03] MEDS: MULTIVITAMIN (CENTRUM) TABLET PO SCH (09:02)
[2018-06-03] MEDS: SODIUM CHLORIDE 0.9% 1,000 ML IV SCH ×2 (09:02→21:26)
[2018-06-03] MEDS: FOLIC ACID 1 MG TABLET PO SCH (09:02)
[2018-06-03] MEDS: risperiDONE 1 MG TABLET PO SCH ×2 (09:02→21:25)
[2018-06-03] MEDS: PANTOPRAZOLE 40 MG TABLET PO SCH (09:02)
[2018-06-03] MEDS: PHYTONADIONE 5 MG/5 ML ORAL.SYR PO SCH (09:02)
[2018-06-03] MEDS: THIAMINE 100 MG TABLET PO SCH (09:02)
[2018-06-03] MEDS ORDERED: cefTRIAXone 2,000 MG in SYRINGE 1 EACH IV SCH (11:00)
[2018-06-03] MEDS: POTASSIUM CHLORIDE 20 MEQ TABLET PO SCH ×3 (11:27→21:25)
[2018-06-03] MEDS: LORazepam 2 MG/1 ML VIAL IV PRN ×2 (16:33→18:38)
[2018-06-03] MEDS ORDERED: LORazepam 2 MG/1 ML VIAL IM ONE (17:15)
[2018-06-04] MEDS: LORazepam 2 MG/1 ML VIAL IV PRN (00:56)
[2018-06-04 02:50] LABS: INR 1.7; PT Patient Result 18.3 SECS
[2018-06-04 03:02] LABS: Albumin 2.4 G/DL (3.4-5.0); Bilirubin,Total 5.7 MG/DL (0.2-1.0); Calcium 7.8 MG/DL (8.5-10.1); Osmolality,Calculated 279.3 MOS/KG (273-304); Potassium 3.8 MMOL/L (3.5-5.1); Total Protein 6.4 G/DL (6.4-8.3)
[2018-06-04 03:06] LABS: Basophils # 0.1 10*3/uL (0.0-0.2); Eosinophils # 0.2 10*3/uL (0.0-0.87); Eosinophils % 2.6 % (0.00-10.9); Hematocrit 30.1 VOL% (42.0-52.0); Hemoglobin 10.2 GM/DL (14.0-18.0); Immature Granulocytes % 0.8 %; Immature Granulocytes Absolute 0.05 #; Lymphocytes # 1.6 10*3/uL (1.4-4.0); Lymphocytes % 25.8 % (21.2-54.2); Mean Corpuscular HGB Conc 33.9 GM/DL (32-36); Mean Corpuscular Hemoglobin 35 PG (27-34); Mean Corpuscular Volume 102.4 FL (87-102); Mean Platelet Volume 11.2 FL (9.6-12.0); Monocytes # 0.8 10*3/uL (0.11-0.8); Monocytes % 12.9 % (1.7-12.7); Neutrophils # 3.5 10*3/uL (1.4-7.4); Neutrophils % 56.9 % (38.7-73.9); Platelet Count 69 T/CUMM (130-400); Red Blood Count 2.94 MC/CUMM (3.8-5.5); Red Cell Distribution Width 15.7 % (9.3-17.3); White Blood Count 6.2 T/CUMM (4-12)
[2018-06-04 03:37] LABS: Hypochromasia Slight; Platelet Estimate Decreased; Polychromasia Few
[2018-06-04] MEDS: chlordiazePOXIDE 25 MG CAPSULE PO SCH ×4 (05:07→23:19)
[2018-06-04] MEDS ORDERED: hydrALAZINE 20 MG/1 ML VIAL IV PRN (08:37)
[2018-06-04] MEDS: METOPROLOL TARTRATE 25 MG TABLET PO SCH ×2 (09:12→23:19)
[2018-06-04] MEDS: THIAMINE 100 MG TABLET PO SCH (09:13)
[2018-06-04] MEDS: PHYTONADIONE 5 MG/5 ML ORAL.SYR PO SCH (09:13)
[2018-06-04] MEDS: CITALOPRAM 20 MG TABLET PO SCH (09:13)
[2018-06-04] MEDS: FOLIC ACID 1 MG TABLET PO SCH (09:13)
[2018-06-04] MEDS: PANTOPRAZOLE 40 MG TABLET PO SCH (09:13)
[2018-06-04] MEDS: risperiDONE 1 MG TABLET PO SCH ×2 (09:13→23:19)
[2018-06-04] MEDS: MULTIVITAMIN (CENTRUM) TABLET PO SCH (09:13)
[2018-06-04] MEDS: SODIUM CHLORIDE 0.9% 1,000 ML IV SCH ×3 (09:14→20:14)
[2018-06-04] MEDS: LACTULOSE 20 GM/30 ML UDCUP PO SCH ×2 (09:14→23:19)
[2018-06-04] MEDS ORDERED: LORazepam 2 MG/1 ML VIAL IV ONE ×2 (09:30→10:00)
[2018-06-04] MEDS ORDERED: chlordiazePOXIDE 25 MG CAPSULE PO ONE ×2 (09:31→10:00)
[2018-06-04] MEDS ORDERED: LORazepam 2 MG/1 ML VIAL IV PRN (10:00)
[2018-06-04] MEDS: cefTRIAXone 1,000 MG in SYRINGE 1 EACH IV SCH (13:35)
[2018-06-05] MEDS ORDERED: ALBUTEROL 2.5 MG/3 ML NEB RESP TX PRN (02:39)
[2018-06-05] MEDS: chlordiazePOXIDE 25 MG CAPSULE PO SCH ×5 (03:02→18:54)
[2018-06-05 05:05] LABS: Basophils # 0.1 10*3/uL (0.0-0.2); Basophils % 0.9 % (0.0-0.8); Eosinophils # 0.2 10*3/uL (0.0-0.87); Eosinophils % 3.5 % (0.00-10.9); Immature Granulocytes % 0.6 %; Immature Granulocytes Absolute 0.03 #; Lymphocytes % 18.9 % (21.2-54.2); Mean Corpuscular HGB Conc 34.4 GM/DL (32-36); Mean Corpuscular Hemoglobin 36 PG (27-34); Mean Corpuscular Volume 104.2 FL (87-102); Monocytes # 0.6 10*3/uL (0.11-0.8); Monocytes % 11.7 % (1.7-12.7); Neutrophils # 3.5 10*3/uL (1.4-7.4); Neutrophils % 64.4 % (38.7-73.9); Platelet Count 82 T/CUMM (130-400); Red Blood Count 3.07 MC/CUMM (3.8-5.5); Red Cell Distribution Width 15.7 % (9.3-17.3); White Blood Count 5.4 T/CUMM (4-12)
[2018-06-05 05:12] LABS: INR 1.6; PT Patient Result 16.8 SECS
[2018-06-05 05:49] LABS: Eosinophils 1 % (0-10); Hypochromasia 1+; Lymphocytes 8 % (20-55); Macrocytosis Slight; Segmented Neutrophils 79 % (50-85); Target Cells Slight; Total Cells Counted 100
[2018-06-05 05:50] LABS: Albumin 2.7 G/DL (3.4-5.0); Calcium 7.9 MG/DL (8.5-10.1); Osmolality,Calculated 276.4 MOS/KG (273-304); Ovalocytes Slight; Platelet Estimate Decreased; Potassium 4.1 MMOL/L (3.5-5.1); Total Protein 6.4 G/DL (6.4-8.3)
[2018-06-05] MEDS: SODIUM CHLORIDE 0.9% 1,000 ML IV SCH ×2 (06:12→17:39)
[2018-06-05] MEDS: METOPROLOL TARTRATE 25 MG TABLET PO SCH (09:12)
[2018-06-05] MEDS: LACTULOSE 20 GM/30 ML UDCUP PO SCH ×3 (13:06→21:46)
[2018-06-05] MEDS: CITALOPRAM 20 MG TABLET PO SCH (13:06)
[2018-06-05] MEDS: MULTIVITAMIN (CENTRUM) TABLET PO SCH (13:06)
[2018-06-05] MEDS: PANTOPRAZOLE 40 MG TABLET PO SCH (13:07)
[2018-06-05] MEDS: FOLIC ACID 1 MG TABLET PO SCH (13:07)
[2018-06-05] MEDS: risperiDONE 1 MG TABLET PO SCH ×2 (13:08→21:47)
[2018-06-05] MEDS: THIAMINE 100 MG TABLET PO SCH (13:08)
[2018-06-05] MEDS: cefTRIAXone 1,000 MG in SYRINGE 1 EACH IV SCH (14:08)
[2018-06-05] MEDS ORDERED: ACETAMINOPHEN 650 MG SUPP RECTAL PRN (17:23)
[2018-06-05] MEDS ORDERED: DEXTROSE 50% 25 GM/50 ML SYRINGE IV PRN (17:24)
[2018-06-05] MEDS ORDERED: GLUCAGON 1 MG VIAL IM PRN (17:24)
[2018-06-05] MEDS: THIAMINE 200 MG/2 ML VIAL IV SCH (17:44)
[2018-06-06] MEDS: SODIUM CHLORIDE 0.9% 1,000 ML IV SCH ×3 (03:27→23:34)
[2018-06-06 05:24] LABS: Basophils # 0.1 10*3/uL (0.0-0.2); Basophils % 1.4 % (0.0-0.8); Eosinophils # 0.3 10*3/uL (0.0-0.87); Hematocrit 31.1 VOL% (42.0-52.0); Hemoglobin 10.2 GM/DL (14.0-18.0); Immature Granulocytes % 0.6 %; Immature Granulocytes Absolute 0.04 #; Lymphocytes # 1.4 10*3/uL (1.4-4.0); Lymphocytes % 22.4 % (21.2-54.2); Mean Corpuscular HGB Conc 32.8 GM/DL (32-36); Mean Corpuscular Hemoglobin 35 PG (27-34); Mean Corpuscular Volume 105.1 FL (87-102); Mean Platelet Volume 10.4 FL (9.6-12.0); Monocytes # 1.1 10*3/uL (0.11-0.8); Monocytes % 18.1 % (1.7-12.7); Neutrophils # 3.4 10*3/uL (1.4-7.4); Neutrophils % 53.5 % (38.7-73.9); Red Blood Count 2.96 MC/CUMM (3.8-5.5); Red Cell Distribution Width 15.9 % (9.3-17.3); White Blood Count 6.3 T/CUMM (4-12)
[2018-06-06 05:32] LABS: Platelet Count 88 T/CUMM (130-400)
[2018-06-06 05:50] LABS: Albumin 2.4 G/DL (3.4-5.0); Bilirubin,Total 8.4 MG/DL (0.2-1.0); Calcium 7.6 MG/DL (8.5-10.1); Osmolality,Calculated 280.1 MOS/KG (273-304); Potassium 3.8 MMOL/L (3.5-5.1); Total Protein 6.2 G/DL (6.4-8.3)
[2018-06-06] MEDS: chlordiazePOXIDE 25 MG CAPSULE PO SCH ×2 (06:03→21:33)
[2018-06-06 06:19] LABS: Eosinophils 7 % (0-10); Lymphocytes 17 % (20-55); Platelet Estimate Decreased; Polychromasia Few; Segmented Neutrophils 67 % (50-85); Total Cells Counted 100
[2018-06-06] MEDS: ALBUTEROL/IPRATROPIUM 3 ML NEB RESP TX SCH ×4 (11:05→23:28)
[2018-06-06] MEDS: cefTRIAXone 1,000 MG in SYRINGE 1 EACH IV SCH (12:13)
[2018-06-06] MEDS: risperiDONE 1 MG TABLET PO SCH ×2 (12:14→21:33)
[2018-06-06] MEDS: CITALOPRAM 20 MG TABLET PO SCH (12:14)
[2018-06-06] MEDS: MULTIVITAMIN (CENTRUM) TABLET PO SCH (12:14)
[2018-06-06] MEDS: ACETAMINOPHEN 500 MG TABLET PO PRN (12:15)
[2018-06-06] MEDS: LACTULOSE 20 GM/30 ML UDCUP PO SCH ×2 (12:15→21:33)
[2018-06-06] MEDS: THIAMINE 200 MG/2 ML VIAL IV SCH (12:15)
[2018-06-06] MEDS: FOLIC ACID 1 MG TABLET PO SCH (12:15)
[2018-06-06] MEDS: PANTOPRAZOLE 40 MG VIAL IV SCH (12:16)
[2018-06-07] MEDS: ALBUTEROL/IPRATROPIUM 3 ML NEB RESP TX SCH ×5 (02:22→21:19)
[2018-06-07 05:17] LABS: Basophils # 0.1 10*3/uL (0.0-0.2); Basophils % 0.9 % (0.0-0.8); Eosinophils # 0.1 10*3/uL (0.0-0.87); Eosinophils % 1.2 % (0.00-10.9); Hematocrit 29.6 VOL% (42.0-52.0); Immature Granulocytes % 0.9 %; Immature Granulocytes Absolute 0.06 #; Lymphocytes # 1.2 10*3/uL (1.4-4.0); Lymphocytes % 17.4 % (21.2-54.2); Mean Corpuscular HGB Conc 33.8 GM/DL (32-36); Mean Corpuscular Hemoglobin 35 PG (27-34); Mean Corpuscular Volume 103.1 FL (87-102); Mean Platelet Volume 10.6 FL (9.6-12.0); Monocytes # 1.3 10*3/uL (0.11-0.8); Monocytes % 18.8 % (1.7-12.7); Neutrophils # 4.1 10*3/uL (1.4-7.4); Neutrophils % 60.8 % (38.7-73.9); Platelet Count 81 T/CUMM (130-400); Red Blood Count 2.87 MC/CUMM (3.8-5.5); Red Cell Distribution Width 16.2 % (9.3-17.3); White Blood Count 6.7 T/CUMM (4-12)
[2018-06-07 05:38] LABS: Albumin 2.2 G/DL (3.4-5.0); Bilirubin,Total 8.2 MG/DL (0.2-1.0); Calcium 7.5 MG/DL (8.5-10.1); Potassium 3.6 MMOL/L (3.5-5.1); Total Protein 5.9 G/DL (6.4-8.3)
[2018-06-07] MEDS: POTASSIUM CHLORIDE 20 MEQ TABLET PO PRN ×2 (05:53→09:51)
[2018-06-07 06:40] LABS: Anisocytosis 1+; Band Neutrophils 2 % (0-10); Eosinophils 2 % (0-10); Hypochromasia 1+; Lymphocytes 19 % (20-55); Segmented Neutrophils 69 % (50-85); Total Cells Counted 100
[2018-06-07 06:41] LABS: Platelet Estimate Decreased; Target Cells 1+
[2018-06-07] MEDS: FOLIC ACID 1 MG TABLET PO SCH (09:49)
[2018-06-07] MEDS: risperiDONE 1 MG TABLET PO SCH ×2 (09:49→21:21)
[2018-06-07] MEDS: MULTIVITAMIN (CENTRUM) TABLET PO SCH (09:50)
[2018-06-07] MEDS: CITALOPRAM 20 MG TABLET PO SCH (09:50)
[2018-06-07] MEDS: LACTULOSE 20 GM/30 ML UDCUP PO SCH ×3 (09:50→21:21)
[2018-06-07] MEDS: THIAMINE 200 MG/2 ML VIAL IV SCH (09:52)
[2018-06-07] MEDS: PANTOPRAZOLE 40 MG VIAL IV SCH (09:55)
[2018-06-07] MEDS: cefTRIAXone 1,000 MG in SYRINGE 1 EACH IV SCH (09:57)
[2018-06-07] MEDS: chlordiazePOXIDE 25 MG CAPSULE PO SCH ×2 (10:50→21:21)
[2018-06-07] MEDS: SODIUM CHLORIDE 0.9% 1,000 ML IV SCH (10:59)
[2018-06-07 12:22] LABS: Hepatitis A Ab IgM Quant 0.12 Index; Hepatitis A Ab IgM Result Negative (Negative); Hepatitis B Core IgM Quant 0.13 Index; Hepatitis B Core IgM Result Negative (Negative); Hepatitis B Surface Ag Quant < 0.10 Index; Hepatitis B Surface Ag Result Negative (Negative); Hepatitis C Virus Ab Quant 0.12 Index; Hepatitis C Virus Ab Result Negative (Negative)
[2018-06-07] MEDS: SCOPOLAMINE 1.5 MG PATCH TRANSDERM SCH (14:39)
[2018-06-07] MEDS ORDERED: LACTULOSE 20 GM/30 ML UDCUP PO SCH (21:00)
[2018-06-07] MEDS: ACETAMINOPHEN 500 MG TABLET PO PRN (21:20)
[2018-06-08] MEDS: ALBUTEROL/IPRATROPIUM 3 ML NEB RESP TX SCH ×6 (01:59→19:30)
[2018-06-08] MEDS: LACTULOSE 20 GM/30 ML UDCUP PO SCH ×4 (04:32→21:34)
[2018-06-08 05:24] LABS: Basophils # 0.1 10*3/uL (0.0-0.2); Basophils % 1.2 % (0.0-0.8); Eosinophils # 0.1 10*3/uL (0.0-0.87); Eosinophils % 1.8 % (0.00-10.9); Hematocrit 30.4 VOL% (42.0-52.0); Hemoglobin 10.1 GM/DL (14.0-18.0); Immature Granulocytes % 0.8 %; Immature Granulocytes Absolute 0.04 #; Lymphocytes # 0.9 10*3/uL (1.4-4.0); Lymphocytes % 18.5 % (21.2-54.2); Mean Corpuscular HGB Conc 33.2 GM/DL (32-36); Mean Corpuscular Hemoglobin 35 PG (27-34); Mean Corpuscular Volume 106.7 FL (87-102); Mean Platelet Volume 10.1 FL (9.6-12.0); Monocytes # 1.4 10*3/uL (0.11-0.8); Monocytes % 28.4 % (1.7-12.7); Neutrophils # 2.5 10*3/uL (1.4-7.4); Neutrophils % 49.3 % (38.7-73.9); Red Blood Count 2.85 MC/CUMM (3.8-5.5); Red Cell Distribution Width 16.7 % (9.3-17.3); White Blood Count 5.1 T/CUMM (4-12)
[2018-06-08 05:33] LABS: Platelet Count 86 T/CUMM (130-400)
[2018-06-08 05:51] LABS: Calcium 7.9 MG/DL (8.5-10.1); Osmolality,Calculated 280.1 MOS/KG (273-304); Potassium 4.1 MMOL/L (3.5-5.1)
[2018-06-08 05:57] LABS: Eosinophils 2 % (0-10); Lymphocytes 18 % (20-55); Platelet Estimate Decreased; Segmented Neutrophils 58 % (50-85); Total Cells Counted 100
[2018-06-08 05:58] LABS: Hypochromasia 1+
[2018-06-08] MEDS: SODIUM CHLORIDE 0.9% 1,000 ML IV SCH (07:01)
[2018-06-08] MEDS ORDERED: SUCCINYLCHOLINE 200 MG/10 ML VIAL ONE (08:45)
[2018-06-08] MEDS ORDERED: PROPOFOL 200 MG/20 ML VIAL IV ONE ×2 (08:46→09:00)
[2018-06-08] MEDS ORDERED: SUCCINYLCHOLINE 200 MG/10 ML VIAL IV ONE (09:00)
[2018-06-08] MEDS ORDERED: SODIUM CHLORIDE 0.9% 500 ML IV ONE (09:02)
[2018-06-08] MEDS: cefTRIAXone 1,000 MG in SYRINGE 1 EACH IV SCH (09:47)
[2018-06-08] MEDS: THIAMINE 200 MG/2 ML VIAL IV SCH (09:47)
[2018-06-08] MEDS: FOLIC ACID 1 MG TABLET PO SCH (09:48)
[2018-06-08] MEDS: MULTIVITAMIN (CENTRUM) TABLET PO SCH (09:48)
[2018-06-08] MEDS: risperiDONE 1 MG TABLET PO SCH ×2 (09:48→21:34)
[2018-06-08] MEDS: chlordiazePOXIDE 25 MG CAPSULE PO SCH ×2 (09:48→21:34)
[2018-06-08] MEDS: ACETAMINOPHEN 500 MG TABLET PO PRN (09:48)
[2018-06-08] MEDS: CITALOPRAM 20 MG TABLET PO SCH (09:48)
[2018-06-08] MEDS: PANTOPRAZOLE 40 MG VIAL IV SCH (09:48)
[2018-06-08] MEDS: PROPOFOL 1,000 MG/100 ML BOTTLE IV SCH ×2 (10:16→21:51)
[2018-06-08 10:18] LABS: ABG Base Excess 2.2 MMOL/L (-2.5-2.5); ABG HCO3 26.4 MMOL/L (20-26); ABG PCO2 46.2 MM HG (35-48); ABG PH 7.386 (7.35-7.45); ABG TCO2 25.1 MMOL/L (23-27); Pt O2 Delivery Device Ventilator
[2018-06-08 12:41] LABS: ABG Base Excess 2.3 MMOL/L (-2.5-2.5); ABG HCO3 26.5 MMOL/L (20-26); ABG Oxygen Saturation 99.7 % (95-100); ABG PCO2 43.3 MM HG (35-48); ABG PH 7.408 (7.35-7.45); ABG TCO2 24.7 MMOL/L (23-27); Allen Test Positive; Pt O2 Delivery Device Ventilator
[2018-06-08] MEDS ORDERED: GLUCAGON 1 MG VIAL IM PRN (13:24)
[2018-06-08] MEDS ORDERED: DEXTROSE 50% 25 GM/50 ML VIAL IV PRN ×2 (13:24→15:56)
[2018-06-08] MEDS: ZINC OXIDE PASTE 113 GM TUBE TOP SCH ×2 (14:46→22:30)
[2018-06-08] MEDS: INSULIN REGULAR 100 UNIT/ML SUBCUT SCH (17:31)
[2018-06-08] MEDS: LORazepam 2 MG/1 ML VIAL IV PRN (22:34)
[2018-06-09] MEDS: INSULIN REGULAR 100 UNIT/ML SUBCUT SCH ×4 (00:15→17:41)
[2018-06-09] MEDS: ALBUTEROL/IPRATROPIUM 3 ML NEB RESP TX SCH ×6 (00:23→20:01)
[2018-06-09] MEDS: PROPOFOL 1,000 MG/100 ML BOTTLE IV SCH ×6 (01:52→20:10)
[2018-06-09 04:00] LABS: ABG Base Excess 2.6 MMOL/L (-2.5-2.5); ABG HCO3 26.7 MMOL/L (20-26); ABG PCO2 40.9 MM HG (35-48); ABG PH 7.429 (7.35-7.45); ABG PO2 84.4 MM HG (80-95); ABG TCO2 24.4 MMOL/L (23-27); Allen Test Positive; Pt O2 Delivery Device Ventilator
[2018-06-09] MEDS: SODIUM CHLORIDE 0.9% 1,000 ML IV SCH (04:01)
[2018-06-09] MEDS: LACTULOSE 20 GM/30 ML UDCUP PO SCH ×4 (04:23→21:31)
[2018-06-09 04:36] LABS: Basophils # 0.1 10*3/uL (0.0-0.2); Basophils % 1.3 % (0.0-0.8); Eosinophils # 0.2 10*3/uL (0.0-0.87); Eosinophils % 3.8 % (0.00-10.9); Hematocrit 30.4 VOL% (42.0-52.0); Hemoglobin 10.1 GM/DL (14.0-18.0); Immature Granulocytes % 0.4 %; Immature Granulocytes Absolute 0.02 #; Lymphocytes # 1.1 10*3/uL (1.4-4.0); Mean Corpuscular HGB Conc 33.2 GM/DL (32-36); Mean Corpuscular Hemoglobin 35 PG (27-34); Mean Corpuscular Volume 105.9 FL (87-102); Mean Platelet Volume 10.4 FL (9.6-12.0); Monocytes # 0.9 10*3/uL (0.11-0.8); Monocytes % 18.2 % (1.7-12.7); Neutrophils # 2.6 10*3/uL (1.4-7.4); Neutrophils % 53.3 % (38.7-73.9); Platelet Count 90 T/CUMM (130-400); Red Blood Count 2.87 MC/CUMM (3.8-5.5); Red Cell Distribution Width 16.6 % (9.3-17.3); White Blood Count 4.8 T/CUMM (4-12)
[2018-06-09 05:13] LABS: Band Neutrophils 1 % (0-10); Eosinophils 6 % (0-10); Hypochromasia 1+; Lymphocytes 19 % (20-55); Macrocytosis 1+; Segmented Neutrophils 60 % (50-85); Target Cells Slight; Total Cells Counted 100
[2018-06-09 05:14] LABS: Platelet Estimate Decreased
[2018-06-09 05:23] LABS: Albumin 2.1 G/DL (3.4-5.0); Calcium 8.1 MG/DL (8.5-10.1); Osmolality,Calculated 284.8 MOS/KG (273-304); Potassium 3.3 MMOL/L (3.5-5.1); Total Protein 6.1 G/DL (6.4-8.3)
[2018-06-09] MEDS: POTASSIUM CHLORIDE 20 MEQ TABLET PO PRN ×2 (06:13→09:03)
[2018-06-09] MEDS: PANTOPRAZOLE 40 MG VIAL IV SCH (09:02)
[2018-06-09] MEDS: cefTRIAXone 1,000 MG in SYRINGE 1 EACH IV SCH (09:02)
[2018-06-09] MEDS: THIAMINE 200 MG/2 ML VIAL IV SCH (09:02)
[2018-06-09] MEDS: LEVOFLOXACIN INJ 750 MG in PREMIX 1 EACH IV SCH (09:02)
[2018-06-09] MEDS: chlordiazePOXIDE 25 MG CAPSULE PO SCH ×2 (09:03→21:31)
[2018-06-09] MEDS: risperiDONE 1 MG TABLET PO SCH ×2 (09:03→21:31)
[2018-06-09] MEDS: MULTIVITAMIN (CENTRUM) TABLET PO SCH (09:03)
[2018-06-09] MEDS: FOLIC ACID 1 MG TABLET PO SCH (09:03)
[2018-06-09] MEDS: CITALOPRAM 20 MG TABLET PO SCH (09:03)
[2018-06-09] MEDS: ZINC OXIDE PASTE 113 GM TUBE TOP SCH ×2 (09:04→23:26)
[2018-06-09] MEDS: POTASSIUM CHLORIDE 20 MEQ/15 ML UDCUP PER TUBE SCH ×2 (09:16→21:31)
[2018-06-10] MEDS: PROPOFOL 1,000 MG/100 ML BOTTLE IV SCH ×6 (00:06→22:34)
[2018-06-10] MEDS: SODIUM CHLORIDE 0.9% 1,000 ML IV SCH (00:28)
[2018-06-10] MEDS: INSULIN REGULAR 100 UNIT/ML SUBCUT SCH ×4 (00:37→18:15)
[2018-06-10] MEDS: ALBUTEROL/IPRATROPIUM 3 ML NEB RESP TX SCH ×7 (03:21→23:34)
[2018-06-10 03:45] LABS: ABG Base Excess 2.5 MMOL/L (-2.5-2.5); ABG HCO3 26.6 MMOL/L (20-26); ABG Oxygen Saturation 97.1 % (95-100); ABG PCO2 33.4 MM HG (35-48); ABG PO2 81.8 MM HG (80-95); ABG TCO2 22.7 MMOL/L (23-27); Allen Test Positive; Pt O2 Delivery Device Ventilator
[2018-06-10] MEDS: LACTULOSE 20 GM/30 ML UDCUP PO SCH ×4 (04:33→21:01)
[2018-06-10 06:12] LABS: Basophils # 0.1 10*3/uL (0.0-0.2); Basophils % 1.4 % (0.0-0.8); Eosinophils # 0.2 10*3/uL (0.0-0.87); Eosinophils % 3.8 % (0.00-10.9); Hematocrit 33.5 VOL% (42.0-52.0); Immature Granulocytes % 0.6 %; Immature Granulocytes Absolute 0.03 #; Lymphocytes # 0.8 10*3/uL (1.4-4.0); Lymphocytes % 15.2 % (21.2-54.2); Mean Corpuscular HGB Conc 32.8 GM/DL (32-36); Mean Corpuscular Hemoglobin 35 PG (27-34); Mean Platelet Volume 10.2 FL (9.6-12.0); Monocytes # 0.7 10*3/uL (0.11-0.8); Monocytes % 13.3 % (1.7-12.7); Neutrophils # 3.3 10*3/uL (1.4-7.4); Neutrophils % 65.7 % (38.7-73.9); Platelet Count 86 T/CUMM (130-400); Red Blood Count 3.16 MC/CUMM (3.8-5.5); Red Cell Distribution Width 16.9 % (9.3-17.3); White Blood Count 5.1 T/CUMM (4-12)
[2018-06-10 06:31] LABS: Calcium 7.9 MG/DL (8.5-10.1); Potassium 3.6 MMOL/L (3.5-5.1)
[2018-06-10 06:56] LABS: Band Neutrophils 5 % (0-10); Eosinophils 7 % (0-10); Hypochromasia 1+; Lymphocytes 21 % (20-55); Ovalocytes Slight; Platelet Estimate Decreased; Segmented Neutrophils 60 % (50-85); Total Cells Counted 100
[2018-06-10 06:57] LABS: Macrocytosis 1+
[2018-06-10] MEDS: LEVOFLOXACIN INJ 750 MG in PREMIX 1 EACH IV SCH (08:55)
[2018-06-10] MEDS: POTASSIUM CHLORIDE 20 MEQ/15 ML UDCUP PER TUBE SCH ×2 (08:56→21:01)
[2018-06-10] MEDS: risperiDONE 1 MG TABLET PO SCH ×2 (08:56→21:01)
[2018-06-10] MEDS: PANTOPRAZOLE 40 MG VIAL IV SCH (08:56)
[2018-06-10] MEDS: FOLIC ACID 1 MG TABLET PO SCH (08:56)
[2018-06-10] MEDS: CITALOPRAM 20 MG TABLET PO SCH (08:56)
[2018-06-10] MEDS: THIAMINE 200 MG/2 ML VIAL IV SCH (08:56)
[2018-06-10] MEDS: cefTRIAXone 1,000 MG in SYRINGE 1 EACH IV SCH (08:57)
[2018-06-10] MEDS: MULTIVITAMIN (CENTRUM) TABLET PO SCH (10:00)
[2018-06-10] MEDS: ZINC OXIDE PASTE 113 GM TUBE TOP SCH ×2 (10:00→21:27)
[2018-06-10] MEDS: chlordiazePOXIDE 25 MG CAPSULE PO SCH ×2 (10:00→21:01)
[2018-06-10] MEDS: SCOPOLAMINE 1.5 MG PATCH TRANSDERM SCH (10:15)
[2018-06-10] MEDS ORDERED: FUROSEMIDE 40 MG/4 ML VIAL IV ONE (12:34)
[2018-06-10] MEDS: ACETAMINOPHEN 500 MG TABLET PO PRN (21:34)
[2018-06-11] MEDS: INSULIN REGULAR 100 UNIT/ML SUBCUT SCH ×4 (00:33→18:20)
[2018-06-11] MEDS: ALBUTEROL/IPRATROPIUM 3 ML NEB RESP TX SCH ×6 (02:33→23:09)
[2018-06-11] MEDS: LACTULOSE 20 GM/30 ML UDCUP PO SCH ×4 (03:11→22:06)
[2018-06-11 04:45] LABS: ABG HCO3 24.4 MMOL/L (20-26); ABG Oxygen Saturation 97.5 % (95-100); ABG PCO2 41.7 MM HG (35-48); ABG PH 7.387 (7.35-7.45); ABG PO2 99.1 MM HG (80-95); ABG TCO2 22.3 MMOL/L (23-27); Allen Test Positive; Pt O2 Delivery Device Ventilator
[2018-06-11 06:11] LABS: Basophils # 0.1 10*3/uL (0.0-0.2); Eosinophils # 0.1 10*3/uL (0.0-0.87); Eosinophils % 1.2 % (0.00-10.9); Hematocrit 31.5 VOL% (42.0-52.0); Hemoglobin 10.6 GM/DL (14.0-18.0); Immature Granulocytes % 0.6 %; Immature Granulocytes Absolute 0.06 #; Lymphocytes # 1.5 10*3/uL (1.4-4.0); Lymphocytes % 16.2 % (21.2-54.2); Mean Corpuscular HGB Conc 33.7 GM/DL (32-36); Mean Corpuscular Hemoglobin 36 PG (27-34); Mean Corpuscular Volume 106.1 FL (87-102); Mean Platelet Volume 10.5 FL (9.6-12.0); Monocytes # 1.2 10*3/uL (0.11-0.8); Monocytes % 12.6 % (1.7-12.7); Neutrophils # 6.4 10*3/uL (1.4-7.4); Neutrophils % 68.4 % (38.7-73.9); Platelet Count 98 T/CUMM (130-400); Red Blood Count 2.97 MC/CUMM (3.8-5.5); Red Cell Distribution Width 17.2 % (9.3-17.3); White Blood Count 9.4 T/CUMM (4-12)
[2018-06-11] MEDS: PROPOFOL 1,000 MG/100 ML BOTTLE IV SCH ×3 (06:19→16:22)
[2018-06-11 06:26] LABS: Albumin 1.9 G/DL (3.4-5.0); Bilirubin,Total 4.1 MG/DL (0.2-1.0); Calcium 7.8 MG/DL (8.5-10.1); Osmolality,Calculated 287.8 MOS/KG (273-304); Potassium 3.8 MMOL/L (3.5-5.1)
[2018-06-11 06:39] LABS: Band Neutrophils 2 % (0-10); Lymphocytes 13 % (20-55); Segmented Neutrophils 67 % (50-85); Total Cells Counted 100
[2018-06-11 06:40] LABS: Hypochromasia 1+; Platelet Estimate Decreased
[2018-06-11 06:41] LABS: Macrocytosis Slight
[2018-06-11] MEDS: cefTRIAXone 1,000 MG in SYRINGE 1 EACH IV SCH (08:51)
[2018-06-11] MEDS: POTASSIUM CHLORIDE 20 MEQ/15 ML UDCUP PER TUBE SCH ×2 (08:51→21:20)
[2018-06-11] MEDS: PANTOPRAZOLE 40 MG VIAL IV SCH (08:52)
[2018-06-11] MEDS: THIAMINE 200 MG/2 ML VIAL IV SCH (08:52)
[2018-06-11] MEDS: FOLIC ACID 1 MG TABLET PO SCH (08:52)
[2018-06-11] MEDS: CITALOPRAM 20 MG TABLET PO SCH (08:52)
[2018-06-11] MEDS: MULTIVITAMIN (CENTRUM) TABLET PO SCH (08:52)
[2018-06-11] MEDS: risperiDONE 1 MG TABLET PO SCH ×2 (08:53→21:20)
[2018-06-11] MEDS: chlordiazePOXIDE 25 MG CAPSULE PO SCH ×2 (08:53→21:20)
[2018-06-11] MEDS: LEVOFLOXACIN INJ 750 MG in PREMIX 1 EACH IV SCH (08:54)
[2018-06-11] MEDS: ZINC OXIDE PASTE 113 GM TUBE TOP SCH ×2 (08:54→21:20)
[2018-06-12] MEDS: INSULIN REGULAR 100 UNIT/ML SUBCUT SCH ×4 (00:46→18:10)
[2018-06-12] MEDS: LACTULOSE 20 GM/30 ML UDCUP PO SCH ×4 (03:06→21:31)
[2018-06-12] MEDS: PROPOFOL 1,000 MG/100 ML BOTTLE IV SCH ×2 (03:07→17:24)
[2018-06-12] MEDS: ALBUTEROL/IPRATROPIUM 3 ML NEB RESP TX SCH ×6 (03:15→22:32)
[2018-06-12 04:12] LABS: Basophils # 0.1 10*3/uL (0.0-0.2); Basophils % 1.1 % (0.0-0.8); Eosinophils # 0.2 10*3/uL (0.0-0.87); Eosinophils % 3.2 % (0.00-10.9); Hematocrit 31.2 VOL% (42.0-52.0); Hemoglobin 10.5 GM/DL (14.0-18.0); Immature Granulocytes % 1.1 %; Immature Granulocytes Absolute 0.08 #; Lymphocytes # 1.2 10*3/uL (1.4-4.0); Lymphocytes % 16.1 % (21.2-54.2); Mean Corpuscular HGB Conc 33.7 GM/DL (32-36); Mean Corpuscular Hemoglobin 36 PG (27-34); Mean Corpuscular Volume 106.1 FL (87-102); Mean Platelet Volume 10.6 FL (9.6-12.0); Monocytes # 0.9 10*3/uL (0.11-0.8); Monocytes % 11.8 % (1.7-12.7); Neutrophils # 4.8 10*3/uL (1.4-7.4); Neutrophils % 66.7 % (38.7-73.9); Platelet Count 103 T/CUMM (130-400); Red Blood Count 2.94 MC/CUMM (3.8-5.5); Red Cell Distribution Width 17.4 % (9.3-17.3); White Blood Count 7.3 T/CUMM (4-12)
[2018-06-12 04:28] LABS: Calcium 8.1 MG/DL (8.5-10.1); Osmolality,Calculated 293.4 MOS/KG (273-304)
[2018-06-12 04:48] LABS: ABG Base Excess 1.6 MMOL/L (-2.5-2.5); ABG HCO3 25.9 MMOL/L (20-26); ABG Oxygen Saturation 97.9 % (95-100); ABG PH 7.415 (7.35-7.45); ABG TCO2 23.6 MMOL/L (23-27); Pt O2 Delivery Device Ventilator
[2018-06-12 04:55] LABS: Hypochromasia 1+; Ovalocytes Slight; Platelet Estimate Decreased
[2018-06-12 04:56] LABS: Macrocytosis Slight; Target Cells Slight
[2018-06-12] MEDS: LEVOFLOXACIN INJ 750 MG in PREMIX 1 EACH IV SCH (09:37)
[2018-06-12] MEDS: POTASSIUM CHLORIDE 20 MEQ/15 ML UDCUP PER TUBE SCH (09:37)
[2018-06-12] MEDS: THIAMINE 200 MG/2 ML VIAL IV SCH (09:37)
[2018-06-12] MEDS: CITALOPRAM 20 MG TABLET PO SCH (09:38)
[2018-06-12] MEDS: ZINC OXIDE PASTE 113 GM TUBE TOP SCH ×2 (09:38→21:31)
[2018-06-12] MEDS: PANTOPRAZOLE 40 MG VIAL IV SCH (09:38)
[2018-06-12] MEDS: MULTIVITAMIN (CENTRUM) TABLET PO SCH (09:38)
[2018-06-12] MEDS: chlordiazePOXIDE 25 MG CAPSULE PO SCH ×2 (09:38→21:31)
[2018-06-12] MEDS: FOLIC ACID 1 MG TABLET PO SCH (09:38)
[2018-06-12] MEDS: risperiDONE 1 MG TABLET PO SCH ×2 (09:38→21:31)
[2018-06-13] MEDS: INSULIN REGULAR 100 UNIT/ML SUBCUT SCH ×4 (00:40→17:29)
[2018-06-13] MEDS: ALBUTEROL/IPRATROPIUM 3 ML NEB RESP TX SCH ×6 (02:20→22:52)
[2018-06-13] MEDS: LACTULOSE 20 GM/30 ML UDCUP PO SCH ×4 (03:15→21:10)
[2018-06-13 03:33] LABS: ABG Base Excess 2.7 MMOL/L (-2.5-2.5); ABG HCO3 26.8 MMOL/L (20-26); ABG Oxygen Saturation 96.9 % (95-100); ABG PCO2 46.3 MM HG (35-48); ABG PH 7.392 (7.35-7.45); ABG PO2 90.3 MM HG (80-95); ABG TCO2 25.4 MMOL/L (23-27); Allen Test Positive; Pt O2 Delivery Device Ventilator
[2018-06-13] MEDS: PROPOFOL 1,000 MG/100 ML BOTTLE IV SCH ×3 (03:59→23:30)
[2018-06-13 04:06] LABS: Basophils # 0.1 10*3/uL (0.0-0.2); Eosinophils # 0.2 10*3/uL (0.0-0.87); Hematocrit 31.5 VOL% (42.0-52.0); Hemoglobin 10.3 GM/DL (14.0-18.0); Immature Granulocytes Absolute 0.08 #; Lymphocytes # 1.5 10*3/uL (1.4-4.0); Lymphocytes % 18.4 % (21.2-54.2); Mean Corpuscular HGB Conc 32.7 GM/DL (32-36); Mean Corpuscular Hemoglobin 36 PG (27-34); Mean Platelet Volume 10.8 FL (9.6-12.0); Monocytes % 13.1 % (1.7-12.7); Neutrophils % 63.5 % (38.7-73.9); Platelet Count 106 T/CUMM (130-400); Red Blood Count 2.89 MC/CUMM (3.8-5.5); White Blood Count 7.9 T/CUMM (4-12)
[2018-06-13 04:18] LABS: Calcium 7.9 MG/DL (8.5-10.1); Osmolality,Calculated 291.6 MOS/KG (273-304); Potassium 4.1 MMOL/L (3.5-5.1)
[2018-06-13] MEDS: LEVOFLOXACIN INJ 750 MG in PREMIX 1 EACH IV SCH (09:07)
[2018-06-13] MEDS: THIAMINE 200 MG/2 ML VIAL IV SCH (09:08)
[2018-06-13] MEDS: SCOPOLAMINE 1.5 MG PATCH TRANSDERM SCH (09:10)
[2018-06-13] MEDS: POTASSIUM CHLORIDE 20 MEQ/15 ML UDCUP PER TUBE SCH (09:10)
[2018-06-13] MEDS: chlordiazePOXIDE 25 MG CAPSULE PO SCH ×2 (09:11→21:10)
[2018-06-13] MEDS: FOLIC ACID 1 MG TABLET PO SCH (09:11)
[2018-06-13] MEDS: CITALOPRAM 20 MG TABLET PO SCH (09:11)
[2018-06-13] MEDS: risperiDONE 1 MG TABLET PO SCH ×2 (09:11→21:10)
[2018-06-13] MEDS: MULTIVITAMIN (CENTRUM) TABLET PO SCH (09:11)
[2018-06-13] MEDS: PANTOPRAZOLE 40 MG VIAL IV SCH (09:12)
[2018-06-13] MEDS: ZINC OXIDE PASTE 113 GM TUBE TOP SCH ×2 (09:19→21:10)
[2018-06-13] MEDS ORDERED: FUROSEMIDE 40 MG/4 ML VIAL IV ONE (12:35)
[2018-06-14] MEDS: INSULIN REGULAR 100 UNIT/ML SUBCUT SCH ×5 (00:16→23:33)
[2018-06-14] MEDS: LACTULOSE 20 GM/30 ML UDCUP PO SCH ×4 (03:15→21:19)
[2018-06-14 03:34] LABS: Allen Test Positive; Pt O2 Delivery Device Ventilator
[2018-06-14 03:35] LABS: ABG Base Excess 6.1 MMOL/L (-2.5-2.5); ABG HCO3 30.6 MMOL/L (20-26); ABG Oxygen Saturation 96.7 % (95-100); ABG PCO2 43.8 MM HG (35-48); ABG PH 7.462 (7.35-7.45); ABG TCO2 31.9 MMOL/L (23-27)
[2018-06-14] MEDS: ALBUTEROL/IPRATROPIUM 3 ML NEB RESP TX SCH ×6 (03:49→23:17)
[2018-06-14 03:58] LABS: Basophils # 0.1 10*3/uL (0.0-0.2); Eosinophils # 0.2 10*3/uL (0.0-0.87); Eosinophils % 2.5 % (0.00-10.9); Hemoglobin 10.5 GM/DL (14.0-18.0); Immature Granulocytes % 1.1 %; Lymphocytes # 1.5 10*3/uL (1.4-4.0); Lymphocytes % 16.9 % (21.2-54.2); Mean Corpuscular HGB Conc 32.8 GM/DL (32-36); Mean Corpuscular Hemoglobin 35 PG (27-34); Mean Corpuscular Volume 106.7 FL (87-102); Mean Platelet Volume 10.9 FL (9.6-12.0); Monocytes # 1.3 10*3/uL (0.11-0.8); Monocytes % 14.5 % (1.7-12.7); Neutrophils # 5.6 10*3/uL (1.4-7.4); Platelet Count 115 T/CUMM (130-400); Red Cell Distribution Width 17.1 % (9.3-17.3); White Blood Count 8.8 T/CUMM (4-12)
[2018-06-14 04:18] LABS: Bilirubin,Total 3.6 MG/DL (0.2-1.0); Calcium 8.2 MG/DL (8.5-10.1); Osmolality,Calculated 287.8 MOS/KG (273-304); Total Protein 6.4 G/DL (6.4-8.3)
[2018-06-14] MEDS: PANTOPRAZOLE 40 MG VIAL IV SCH (09:09)
[2018-06-14] MEDS: LEVOFLOXACIN INJ 750 MG in PREMIX 1 EACH IV SCH (09:09)
[2018-06-14] MEDS: THIAMINE 200 MG/2 ML VIAL IV SCH (09:09)
[2018-06-14] MEDS: risperiDONE 1 MG TABLET PO SCH ×2 (09:10→21:19)
[2018-06-14] MEDS: chlordiazePOXIDE 25 MG CAPSULE PO SCH (09:10)
[2018-06-14] MEDS: FOLIC ACID 1 MG TABLET PO SCH (09:10)
[2018-06-14] MEDS: POTASSIUM CHLORIDE 20 MEQ/15 ML UDCUP PER TUBE SCH (09:10)
[2018-06-14] MEDS: CITALOPRAM 20 MG TABLET PO SCH (09:10)
[2018-06-14] MEDS: ZINC OXIDE PASTE 113 GM TUBE TOP SCH ×2 (09:10→21:20)
[2018-06-14] MEDS: MULTIVITAMIN (CENTRUM) TABLET PO SCH (09:10)
[2018-06-14] MEDS: PROPOFOL 1,000 MG/100 ML BOTTLE IV SCH (11:48)
[2018-06-14] MEDS: chlordiazePOXIDE 10 MG CAPSULE PO SCH (21:19)
[2018-06-15] MEDS: ALBUTEROL/IPRATROPIUM 3 ML NEB RESP TX SCH ×6 (02:52→23:29)
[2018-06-15] MEDS: LACTULOSE 20 GM/30 ML UDCUP PO SCH ×4 (03:09→21:36)
[2018-06-15 03:47] LABS: ABG HCO3 30.8 MMOL/L (20-26); ABG Oxygen Saturation 96.6 % (95-100); ABG PH 7.436 (7.35-7.45); ABG PO2 83.9 MM HG (80-95); ABG TCO2 29.3 MMOL/L (23-27); Allen Test Positive; Pt O2 Delivery Device Ventilator
[2018-06-15] MEDS: LORazepam 2 MG/1 ML VIAL IV PRN (03:57)
[2018-06-15 04:22] LABS: Basophils # 0.1 10*3/uL (0.0-0.2); Eosinophils # 0.2 10*3/uL (0.0-0.87); Eosinophils % 2.9 % (0.00-10.9); Hematocrit 29.9 VOL% (42.0-52.0); Hemoglobin 9.8 GM/DL (14.0-18.0); Immature Granulocytes % 1.3 %; Lymphocytes # 1.5 10*3/uL (1.4-4.0); Lymphocytes % 18.9 % (21.2-54.2); Mean Corpuscular HGB Conc 32.8 GM/DL (32-36); Mean Corpuscular Hemoglobin 35 PG (27-34); Mean Corpuscular Volume 107.2 FL (87-102); Mean Platelet Volume 10.4 FL (9.6-12.0); Monocytes # 1.3 10*3/uL (0.11-0.8); Monocytes % 16.3 % (1.7-12.7); Neutrophils # 4.8 10*3/uL (1.4-7.4); Neutrophils % 59.6 % (38.7-73.9); Platelet Count 113 T/CUMM (130-400); Red Blood Count 2.79 MC/CUMM (3.8-5.5); Red Cell Distribution Width 16.7 % (9.3-17.3)
[2018-06-15 04:56] LABS: Bilirubin,Total 4.4 MG/DL (0.2-1.0); Calcium 8.2 MG/DL (8.5-10.1); Osmolality,Calculated 284.1 MOS/KG (273-304); Potassium 4.3 MMOL/L (3.5-5.1); Total Protein 6.1 G/DL (6.4-8.3)
[2018-06-15 05:10] LABS: Band Neutrophils 2 % (0-10); Eosinophils 3 % (0-10); Hypochromasia 1+; Lymphocytes 19 % (20-55); Platelet Estimate Decreased; Segmented Neutrophils 66 % (50-85); Total Cells Counted 100
[2018-06-15] MEDS: INSULIN REGULAR 100 UNIT/ML SUBCUT SCH ×4 (05:57→23:42)
[2018-06-15] MEDS: THIAMINE 200 MG/2 ML VIAL IV SCH (08:34)
[2018-06-15] MEDS: LEVOFLOXACIN INJ 750 MG in PREMIX 1 EACH IV SCH (08:34)
[2018-06-15] MEDS: PANTOPRAZOLE 40 MG VIAL IV SCH (08:34)
[2018-06-15] MEDS: chlordiazePOXIDE 10 MG CAPSULE PO SCH (08:35)
[2018-06-15] MEDS: risperiDONE 1 MG TABLET PO SCH (08:35)
[2018-06-15] MEDS: CITALOPRAM 20 MG TABLET PO SCH (08:35)
[2018-06-15] MEDS: FOLIC ACID 1 MG TABLET PO SCH (08:35)
[2018-06-15] MEDS: POTASSIUM CHLORIDE 20 MEQ/15 ML UDCUP PER TUBE SCH (08:35)
[2018-06-15] MEDS: ZINC OXIDE PASTE 113 GM TUBE TOP SCH ×2 (08:35→21:36)
[2018-06-15] MEDS: MULTIVITAMIN (CENTRUM) TABLET PO SCH (08:36)
[2018-06-15] MEDS ORDERED: LORazepam 2 MG/1 ML VIAL IV PRN (16:28)
[2018-06-15] MEDS ORDERED: POTASSIUM CHLORIDE 20 MEQ/15 ML UDCUP PER TUBE SCH (16:35)
[2018-06-15] MEDS: cefTRIAXone 1,000 MG in SYRINGE 1 EACH IV SCH (17:22)
[2018-06-15] MEDS: CLINDAMYCIN INJ 300 MG in PREMIX 1 EACH IV SCH (17:32)
[2018-06-16] MEDS: CLINDAMYCIN INJ 300 MG in PREMIX 1 EACH IV SCH ×3 (02:34→18:03)
[2018-06-16] MEDS: ALBUTEROL/IPRATROPIUM 3 ML NEB RESP TX SCH ×6 (03:35→23:33)
[2018-06-16] MEDS: LACTULOSE 20 GM/30 ML UDCUP PO SCH ×4 (04:20→22:44)
[2018-06-16 04:51] LABS: Basophils # 0.1 10*3/uL (0.0-0.2); Basophils % 1.6 % (0.0-0.8); Eosinophils # 0.3 10*3/uL (0.0-0.87); Eosinophils % 4.1 % (0.00-10.9); Hematocrit 31.7 VOL% (42.0-52.0); Hemoglobin 10.2 GM/DL (14.0-18.0); Immature Granulocytes % 1.8 %; Immature Granulocytes Absolute 0.13 #; Lymphocytes # 1.4 10*3/uL (1.4-4.0); Mean Corpuscular HGB Conc 32.2 GM/DL (32-36); Mean Corpuscular Hemoglobin 35 PG (27-34); Mean Corpuscular Volume 108.2 FL (87-102); Mean Platelet Volume 10.3 FL (9.6-12.0); Monocytes # 1.3 10*3/uL (0.11-0.8); Neutrophils # 4.1 10*3/uL (1.4-7.4); Neutrophils % 55.5 % (38.7-73.9); Platelet Count 112 T/CUMM (130-400); Red Blood Count 2.93 MC/CUMM (3.8-5.5); Red Cell Distribution Width 15.9 % (9.3-17.3); White Blood Count 7.3 T/CUMM (4-12)
[2018-06-16 05:13] LABS: Bilirubin,Total 4.2 MG/DL (0.2-1.0); Calcium 8.3 MG/DL (8.5-10.1); Osmolality,Calculated 276.5 MOS/KG (273-304); Potassium 4.2 MMOL/L (3.5-5.1); Total Protein 6.3 G/DL (6.4-8.3)
[2018-06-16 05:21] LABS: Band Neutrophils 3 % (0-10); Eosinophils 3 % (0-10); Lymphocytes 22 % (20-55); Metamyelocytes 2 %; Platelet Estimate Decreased; Segmented Neutrophils 52 % (50-85); Total Cells Counted 100
[2018-06-16 05:22] LABS: Anisocytosis 2+; Hypochromasia 2+; Macrocytosis 2+; Target Cells 2+
[2018-06-16] MEDS: INSULIN REGULAR 100 UNIT/ML SUBCUT SCH (06:26)
[2018-06-16] MEDS: MULTIVITAMIN (CENTRUM) TABLET PO SCH (08:52)
[2018-06-16] MEDS: FOLIC ACID 1 MG TABLET PO SCH (08:52)
[2018-06-16] MEDS: CITALOPRAM 20 MG TABLET PO SCH (08:52)
[2018-06-16] MEDS: ZINC OXIDE PASTE 113 GM TUBE TOP SCH ×2 (08:52→21:34)
[2018-06-16] MEDS: THIAMINE 100 MG TABLET PO SCH (08:53)
[2018-06-16] MEDS: SCOPOLAMINE 1.5 MG PATCH TRANSDERM SCH (08:53)
[2018-06-16] MEDS: PANTOPRAZOLE 40 MG VIAL IV SCH (08:53)
[2018-06-16 15:05] LABS: ABG Base Excess 8.3 MMOL/L (-2.5-2.5); ABG HCO3 34.8 MMOL/L (20-26); ABG Oxygen Saturation 97.8 % (95-100); ABG PCO2 58.6 MM HG (35-48); ABG PH 7.391 (7.35-7.45); ABG PO2 118.2 MM HG (80-95); ABG TCO2 36.6 MMOL/L (23-27)
[2018-06-16] MEDS: cefTRIAXone 1,000 MG in SYRINGE 1 EACH IV SCH (17:18)
[2018-06-16] MEDS ORDERED: DOPamine 800 MG/250 ML PREMIX IV PRN (17:27)
[2018-06-16] MEDS: ATROPINE 1 % OPH SOLN 5 ML BOTTLE SL PRN (21:39)
[2018-06-17] MEDS: ATROPINE 1 % OPH SOLN 5 ML BOTTLE SL PRN (01:26)
[2018-06-17] MEDS: CLINDAMYCIN INJ 300 MG in PREMIX 1 EACH IV SCH ×3 (01:26→17:31)
[2018-06-17] MEDS: ALBUTEROL/IPRATROPIUM 3 ML NEB RESP TX SCH ×6 (02:26→23:50)
[2018-06-17] MEDS: LACTULOSE 20 GM/30 ML UDCUP PO SCH ×4 (04:42→23:29)
[2018-06-17 06:08] LABS: Basophils # 0.1 10*3/uL (0.0-0.2); Basophils % 1.6 % (0.0-0.8); Eosinophils # 0.3 10*3/uL (0.0-0.87); Eosinophils % 4.2 % (0.00-10.9); Hematocrit 30.5 VOL% (42.0-52.0); Hemoglobin 10.1 GM/DL (14.0-18.0); Immature Granulocytes % 1.3 %; Lymphocytes # 1.5 10*3/uL (1.4-4.0); Lymphocytes % 19.3 % (21.2-54.2); Mean Corpuscular HGB Conc 33.1 GM/DL (32-36); Mean Corpuscular Hemoglobin 35 PG (27-34); Mean Platelet Volume 10.4 FL (9.6-12.0); Monocytes # 1.2 10*3/uL (0.11-0.8); Monocytes % 15.4 % (1.7-12.7); Neutrophils # 4.5 10*3/uL (1.4-7.4); Neutrophils % 58.2 % (38.7-73.9); Platelet Count 125 T/CUMM (130-400); Red Blood Count 2.85 MC/CUMM (3.8-5.5); Red Cell Distribution Width 15.6 % (9.3-17.3); White Blood Count 7.7 T/CUMM (4-12)
[2018-06-17 06:33] LABS: Calcium 8.5 MG/DL (8.5-10.1); Osmolality,Calculated 278.4 MOS/KG (273-304); Potassium 4.1 MMOL/L (3.5-5.1)
[2018-06-17] MEDS: THIAMINE 100 MG TABLET PO SCH (09:11)
[2018-06-17] MEDS: LANSOPRAZOLE ODT 30 MG TABLET PER TUBE SCH (09:11)
[2018-06-17] MEDS: MULTIVITAMIN (CENTRUM) TABLET PO SCH (09:11)
[2018-06-17] MEDS: CITALOPRAM 20 MG TABLET PO SCH (09:11)
[2018-06-17] MEDS: ZINC OXIDE PASTE 113 GM TUBE TOP SCH (09:11)
[2018-06-17] MEDS: FOLIC ACID 1 MG TABLET PO SCH (09:11)
[2018-06-17] MEDS: methylPREDNISolone SOD SUC 40 MG/1 ML VIAL IV SCH ×2 (10:43→17:30)
[2018-06-17] MEDS: cefTRIAXone 1,000 MG in SYRINGE 1 EACH IV SCH (17:30)
[2018-06-18] MEDS: ZINC OXIDE PASTE 113 GM TUBE TOP SCH ×3 (00:05→21:54)
[2018-06-18] MEDS: methylPREDNISolone SOD SUC 40 MG/1 ML VIAL IV SCH ×3 (01:55→16:48)
[2018-06-18] MEDS: CLINDAMYCIN INJ 300 MG in PREMIX 1 EACH IV SCH ×3 (01:58→19:23)
[2018-06-18] MEDS: ALBUTEROL/IPRATROPIUM 3 ML NEB RESP TX SCH ×6 (03:07→23:24)
[2018-06-18] MEDS: LACTULOSE 20 GM/30 ML UDCUP PO SCH ×4 (03:40→21:54)
[2018-06-18 05:22] LABS: Basophils % 0.1 % (0.0-0.8); Hematocrit 31.7 VOL% (42.0-52.0); Hemoglobin 10.6 GM/DL (14.0-18.0); Immature Granulocytes % 0.8 %; Immature Granulocytes Absolute 0.06 #; Lymphocytes # 0.5 10*3/uL (1.4-4.0); Lymphocytes % 7.4 % (21.2-54.2); Mean Corpuscular HGB Conc 33.4 GM/DL (32-36); Mean Corpuscular Hemoglobin 36 PG (27-34); Mean Corpuscular Volume 106.7 FL (87-102); Mean Platelet Volume 10.3 FL (9.6-12.0); Monocytes # 0.3 10*3/uL (0.11-0.8); Monocytes % 4.8 % (1.7-12.7); Neutrophils # 6.2 10*3/uL (1.4-7.4); Neutrophils % 86.9 % (38.7-73.9); Platelet Count 148 T/CUMM (130-400); Red Blood Count 2.97 MC/CUMM (3.8-5.5); Red Cell Distribution Width 15.1 % (9.3-17.3); White Blood Count 7.1 T/CUMM (4-12)
[2018-06-18 05:40] LABS: Calcium 8.7 MG/DL (8.5-10.1); Osmolality,Calculated 281.5 MOS/KG (273-304); Potassium 4.2 MMOL/L (3.5-5.1)
[2018-06-18 05:44] LABS: Prealbumin 5.6 MG/DL (20-40)
[2018-06-18] MEDS: LANSOPRAZOLE ODT 30 MG TABLET PER TUBE SCH (10:48)
[2018-06-18] MEDS: MULTIVITAMIN (CENTRUM) TABLET PO SCH (10:48)
[2018-06-18] MEDS: FOLIC ACID 1 MG TABLET PO SCH (10:48)
[2018-06-18] MEDS: THIAMINE 100 MG TABLET PO SCH (10:48)
[2018-06-18] MEDS: CITALOPRAM 20 MG TABLET PO SCH (10:48)
[2018-06-18] MEDS: guaiFENesin 200 MG/10 ML UDCUP PER TUBE SCH ×3 (14:10→21:53)
[2018-06-18] MEDS: ACETAMINOPHEN 500 MG TABLET PO PRN (14:11)
[2018-06-18] MEDS: cefTRIAXone 1,000 MG in SYRINGE 1 EACH IV SCH (16:48)
[2018-06-19] MEDS: methylPREDNISolone SOD SUC 40 MG/1 ML VIAL IV SCH ×3 (00:11→17:21)
[2018-06-19] MEDS: CLINDAMYCIN INJ 300 MG in PREMIX 1 EACH IV SCH ×4 (01:09→17:24)
[2018-06-19] MEDS: ALBUTEROL/IPRATROPIUM 3 ML NEB RESP TX SCH ×5 (02:26→19:08)
[2018-06-19] MEDS: LACTULOSE 20 GM/30 ML UDCUP PO SCH ×4 (05:29→22:32)
[2018-06-19 06:09] LABS: Basophils % 0.1 % (0.0-0.8); Hematocrit 28.1 VOL% (42.0-52.0); Hemoglobin 9.4 GM/DL (14.0-18.0); Immature Granulocytes % 1.2 %; Immature Granulocytes Absolute 0.11 #; Lymphocytes # 0.6 10*3/uL (1.4-4.0); Lymphocytes % 6.1 % (21.2-54.2); Mean Corpuscular HGB Conc 33.5 GM/DL (32-36); Mean Corpuscular Hemoglobin 36 PG (27-34); Mean Corpuscular Volume 106.4 FL (87-102); Mean Platelet Volume 10.4 FL (9.6-12.0); Monocytes # 0.6 10*3/uL (0.11-0.8); Monocytes % 6.1 % (1.7-12.7); Neutrophils # 7.8 10*3/uL (1.4-7.4); Neutrophils % 86.5 % (38.7-73.9); Platelet Count 143 T/CUMM (130-400); Red Blood Count 2.64 MC/CUMM (3.8-5.5); Red Cell Distribution Width 16.2 % (9.3-17.3); White Blood Count 9.1 T/CUMM (4-12)
[2018-06-19 06:28] LABS: Calcium 8.4 MG/DL (8.5-10.1); Osmolality,Calculated 284.5 MOS/KG (273-304); Potassium 4.3 MMOL/L (3.5-5.1)
[2018-06-19] MEDS: guaiFENesin 200 MG/10 ML UDCUP PER TUBE SCH ×4 (08:53→22:30)
[2018-06-19] MEDS: CITALOPRAM 20 MG TABLET PO SCH (08:54)
[2018-06-19] MEDS: MULTIVITAMIN (CENTRUM) TABLET PO SCH (08:54)
[2018-06-19] MEDS: THIAMINE 100 MG TABLET PO SCH (08:54)
[2018-06-19] MEDS: FOLIC ACID 1 MG TABLET PO SCH (08:54)
[2018-06-19] MEDS: LANSOPRAZOLE ODT 30 MG TABLET PER TUBE SCH (08:54)
[2018-06-19] MEDS: ZINC OXIDE PASTE 113 GM TUBE TOP SCH ×2 (08:55→22:35)
[2018-06-19] MEDS: cefTRIAXone 1,000 MG in SYRINGE 1 EACH IV SCH (17:20)
[2018-06-20] MEDS: ALBUTEROL/IPRATROPIUM 3 ML NEB RESP TX SCH ×7 (00:07→23:25)
[2018-06-20] MEDS: methylPREDNISolone SOD SUC 40 MG/1 ML VIAL IV SCH ×2 (04:05→09:08)
[2018-06-20] MEDS: CLINDAMYCIN INJ 300 MG in PREMIX 1 EACH IV SCH ×2 (04:06→09:05)
[2018-06-20 05:54] LABS: Albumin 2.3 G/DL (3.4-5.0); Bilirubin,Direct 1.87 MG/DL (0.0-0.20); Bilirubin,Indirect 1.5 MG/DL (0.0-1.0); Bilirubin,Total 3.4 MG/DL (0.2-1.0); Total Protein 6.5 G/DL (6.4-8.3)
[2018-06-20 08:40] LABS: Hematocrit 27.8 VOL% (42.0-52.0); Hemoglobin 9.1 GM/DL (14.0-18.0); Immature Granulocytes % 1.7 %; Immature Granulocytes Absolute 0.13 #; Lymphocytes # 0.5 10*3/uL (1.4-4.0); Lymphocytes % 6.4 % (21.2-54.2); Mean Corpuscular HGB Conc 32.7 GM/DL (32-36); Mean Corpuscular Hemoglobin 35 PG (27-34); Mean Corpuscular Volume 106.5 FL (87-102); Mean Platelet Volume 10.7 FL (9.6-12.0); Monocytes # 0.6 10*3/uL (0.11-0.8); Monocytes % 8.1 % (1.7-12.7); Neutrophils # 6.3 10*3/uL (1.4-7.4); Neutrophils % 83.8 % (38.7-73.9); Platelet Count 139 T/CUMM (130-400); Red Blood Count 2.61 MC/CUMM (3.8-5.5); Red Cell Distribution Width 16.5 % (9.3-17.3); White Blood Count 7.5 T/CUMM (4-12)
[2018-06-20] MEDS: CITALOPRAM 20 MG TABLET PO SCH (09:06)
[2018-06-20] MEDS: MULTIVITAMIN (CENTRUM) TABLET PO SCH (09:06)
[2018-06-20] MEDS: guaiFENesin 200 MG/10 ML UDCUP PER TUBE SCH ×4 (09:06→20:48)
[2018-06-20] MEDS: LANSOPRAZOLE ODT 30 MG TABLET PER TUBE SCH (09:06)
[2018-06-20] MEDS: FOLIC ACID 1 MG TABLET PO SCH (09:06)
[2018-06-20] MEDS: ZINC OXIDE PASTE 113 GM TUBE TOP SCH ×2 (09:07→23:45)
[2018-06-20] MEDS: LACTULOSE 20 GM/30 ML UDCUP PO SCH ×2 (09:07→20:48)
[2018-06-20] MEDS: THIAMINE 100 MG TABLET PO SCH (09:07)
[2018-06-20 09:08] LABS: Albumin 2.2 G/DL (3.4-5.0); Bilirubin,Total 3.4 MG/DL (0.2-1.0); Calcium 8.2 MG/DL (8.5-10.1); Osmolality,Calculated 279.7 MOS/KG (273-304); Total Protein 6.2 G/DL (6.4-8.3)
[2018-06-20] MEDS: chlordiazePOXIDE 25 MG CAPSULE PO SCH ×3 (12:25→20:47)
[2018-06-21] MEDS: LACTULOSE 20 GM/30 ML UDCUP PO SCH ×3 (02:14→22:43)
[2018-06-21] MEDS: guaiFENesin 200 MG/10 ML UDCUP PER TUBE SCH ×5 (02:15→22:42)
[2018-06-21] MEDS: chlordiazePOXIDE 25 MG CAPSULE PO SCH ×5 (02:15→22:42)
[2018-06-21] MEDS: ALBUTEROL/IPRATROPIUM 3 ML NEB RESP TX SCH ×6 (04:06→23:30)
[2018-06-21 05:36] LABS: Eosinophils % 0.1 % (0.00-10.9); Hematocrit 27.7 VOL% (42.0-52.0); Hemoglobin 9.2 GM/DL (14.0-18.0); Immature Granulocytes Absolute 0.08 #; Lymphocytes # 1.2 10*3/uL (1.4-4.0); Lymphocytes % 14.3 % (21.2-54.2); Mean Corpuscular HGB Conc 33.2 GM/DL (32-36); Mean Corpuscular Hemoglobin 35 PG (27-34); Mean Corpuscular Volume 105.3 FL (87-102); Mean Platelet Volume 10.7 FL (9.6-12.0); Monocytes # 1.3 10*3/uL (0.11-0.8); Monocytes % 16.2 % (1.7-12.7); Neutrophils # 5.5 10*3/uL (1.4-7.4); Neutrophils % 68.4 % (38.7-73.9); Platelet Count 138 T/CUMM (130-400); Red Blood Count 2.63 MC/CUMM (3.8-5.5); Red Cell Distribution Width 16.2 % (9.3-17.3)
[2018-06-21 06:16] LABS: Albumin 2.2 G/DL (3.4-5.0); Bilirubin,Total 2.7 MG/DL (0.2-1.0); Calcium 8.1 MG/DL (8.5-10.1); Osmolality,Calculated 277.7 MOS/KG (273-304); Potassium 3.3 MMOL/L (3.5-5.1); Total Protein 5.9 G/DL (6.4-8.3)
[2018-06-21 07:13] LABS: Band Neutrophils 2 % (0-10); Lymphocytes 6 % (20-55); Segmented Neutrophils 86 % (50-85); Total Cells Counted 100
[2018-06-21 07:16] LABS: Anisocytosis Slight; Hypochromasia 3+; Poikilocytosis Slight
[2018-06-21 07:17] LABS: Microcytosis Slight; Ovalocytes Few; Platelet Estimate Adequate; Polychromasia Slight; Stomatocytes Slight; Target Cells Few; Tear Drop Cells Slight
[2018-06-21] MEDS: MULTIVITAMIN (CENTRUM) TABLET PO SCH (08:41)
[2018-06-21] MEDS: CITALOPRAM 20 MG TABLET PO SCH (08:41)
[2018-06-21] MEDS: THIAMINE 100 MG TABLET PO SCH (08:41)
[2018-06-21] MEDS: LANSOPRAZOLE ODT 30 MG TABLET PER TUBE SCH (08:41)
[2018-06-21] MEDS: FOLIC ACID 1 MG TABLET PO SCH (08:41)
[2018-06-21] MEDS: ZINC OXIDE PASTE 113 GM TUBE TOP SCH ×2 (08:41→22:43)
[2018-06-21] MEDS: POTASSIUM CHLORIDE 20 MEQ TABLET PO PRN ×3 (10:10→16:17)
[2018-06-21] MEDS ORDERED: POTASSIUM PHOSPHATE 15 MMOL in SODIUM CHLORIDE 0.9% 100 ML IV ONE (12:34)
[2018-06-22] MEDS: ALBUTEROL/IPRATROPIUM 3 ML NEB RESP TX SCH ×3 (03:04→10:37)
[2018-06-22 05:55] LABS: Basophils % 0.2 % (0.0-0.8); Eosinophils # 0.2 10*3/uL (0.0-0.87); Eosinophils % 3.1 % (0.00-10.9); Hematocrit 29.6 VOL% (42.0-52.0); Hemoglobin 9.8 GM/DL (14.0-18.0); Immature Granulocytes % 1.6 %; Immature Granulocytes Absolute 0.09 #; Lymphocytes # 1.3 10*3/uL (1.4-4.0); Lymphocytes % 23.5 % (21.2-54.2); Mean Corpuscular HGB Conc 33.1 GM/DL (32-36); Mean Corpuscular Hemoglobin 35 PG (27-34); Mean Corpuscular Volume 106.1 FL (87-102); Mean Platelet Volume 10.5 FL (9.6-12.0); Monocytes # 0.7 10*3/uL (0.11-0.8); Monocytes % 12.6 % (1.7-12.7); Neutrophils # 3.2 10*3/uL (1.4-7.4); Platelet Count 126 T/CUMM (130-400); Red Blood Count 2.79 MC/CUMM (3.8-5.5); Red Cell Distribution Width 16.4 % (9.3-17.3); White Blood Count 5.5 T/CUMM (4-12)
[2018-06-22 06:27] LABS: Bilirubin,Total 3.2 MG/DL (0.2-1.0); Calcium 7.9 MG/DL (8.5-10.1); Osmolality,Calculated 282.3 MOS/KG (273-304); Potassium 3.5 MMOL/L (3.5-5.1); Total Protein 5.5 G/DL (6.4-8.3)
[2018-06-22] MEDS: CITALOPRAM 20 MG TABLET PO SCH (10:24)
[2018-06-22] MEDS: guaiFENesin 200 MG/10 ML UDCUP PER TUBE SCH ×2 (10:24→14:01)
[2018-06-22] MEDS: MULTIVITAMIN (CENTRUM) TABLET PO SCH (10:24)
[2018-06-22] MEDS: chlordiazePOXIDE 25 MG CAPSULE PO SCH ×2 (10:24→14:00)
[2018-06-22] MEDS: POTASSIUM CHLORIDE 20 MEQ TABLET PO PRN (10:24)
[2018-06-22] MEDS: FOLIC ACID 1 MG TABLET PO SCH (10:24)
[2018-06-22] MEDS: THIAMINE 100 MG TABLET PO SCH (10:25)
[2018-06-22] MEDS: ZINC OXIDE PASTE 113 GM TUBE TOP SCH (10:25)
[2018-06-22] MEDS: LANSOPRAZOLE ODT 30 MG TABLET PER TUBE SCH (10:25)
[2018-06-22] MEDS: LACTULOSE 20 GM/30 ML UDCUP PO SCH (14:01)
[2018-06-22 15:16] VITALS: BP 120/61
== END 2018-06-22 14:34 | disposition home or self-care (01) | DRG 896 ==
LOC: EDBD → EDUNIT# → N.EDINP 22:31 → N.ED 22:31 → N.2E 06-02 05:39 → SUATTDRO 06-03 10:08 → N.CC 06-04 09:45 → N.5E 06-18 17:45
PROVIDERS: ADMIT Internal Medicine; ATTEND Internal Medicine Geriatric Medicine